=== PATIENT | female | born 1965 | race Caucasian/White ===

== ENCOUNTER 2019-03-07 21:30 | Inpatient (IN) | payer OTHER ==
[~2019-03-07] VITALS: Ht 177.8 cm; Wt 113.2 kg
[2019-03-07] MEDS ORDERED: NITROGLYCERIN SUBLINGUAL 0.4 MG BOTTLE OF 25. SL PRN (21:45)
[2019-03-07] MEDS ORDERED: ASPIRIN CHEWABLE 81 MG TABLET. PO ONE (21:45)
[2019-03-07] MEDS ORDERED: MORPHINE SULFATE 2 MG/ML VIAL. IV/SQ PRN (21:45)
[2019-03-07 21:48] LABS: BASO # 0.1 x10^3/uL (0.0-0.2); BASO % 1 % (0-3); EOS # 0.2 x10^3/uL (0.0-0.7); EOS % 2 % (0-3); HEMATOCRIT 37.8 % (36.0-47.0); HEMOGLOBIN 12.3 g/dL (12.0-15.5); LYMPH # 3.3 x10^3/uL (1.0-4.8); LYMPH % 34 % (24-48); MEAN CORPUSCULAR HEMOGLOBIN 28 pg (25-35); MEAN CORPUSCULAR HGB CONC 33 g/dL (31-37); MEAN CORPUSCULAR VOLUME 84 fL (79-100); MONO # 0.7 x10^3/uL (0.0-1.1); MONO % 8 % (0-9); NEUT # 5.3 x10^3/uL (1.8-7.7); NEUT % 56 % (31-73); PLATELET COUNT 293 x10^3/uL (140-400); RED BLOOD COUNT 4.48 x10^6/uL (3.50-5.40); RED CELL DISTRIBUTION WIDTH 15.4 % (11.5-14.5); WHITE BLOOD COUNT 9.5 x10^3/uL (4.0-11.0)
[2019-03-07 21:55] LABS: CALCIUM 8.7 mg/dL (8.5-10.1); GFR 58.5; POTASSIUM 3.1 mmol/L (3.5-5.1)
[2019-03-07 21:57] LABS: PROTHROMBIN TIME PATIENT 12.3 SEC (11.7-14.0)
[2019-03-07 22:01] LABS: ALBUMIN 3.9 g/dL (3.4-5.0); ALBUMIN/GLOBULIN RATIO 1.2 (1.0-1.7); TOTAL BILIRUBIN 0.3 mg/dL (0.2-1.0); TOTAL PROTEIN 7.2 g/dL (6.4-8.2)
[2019-03-07] MEDS ORDERED: ONDANSETRON PF 4 MG/2 ML VIAL. ONE (22:11)
[2019-03-07] MEDS ORDERED: ONDANSETRON PF 4 MG/2 ML VIAL. IM ONE (22:15)
[2019-03-07] MEDS ORDERED: ONDANSETRON PF 4 MG/2 ML VIAL. IV ONE (22:15)
--- NOTE | 2019-03-07 22:33 | RAD ---
Exam: Chest one view INDICATION: Chest pain TECHNIQUE: Frontal view of the chest Comparisons: None FINDINGS: The cardiomediastinal silhouette and pulmonary vessels are within normal limits. The lung and pleural spaces are clear. IMPRESSION: No acute cardiopulmonary process. Electronically signed by: Yazmin Olivares MD (03/07/2019 10:30 PM) [facility]
[2019-03-07] MEDS ORDERED: MORPHINE SULFATE 2 MG/ML VIAL. IV ONE (22:45)
[2019-03-07] MEDS ORDERED: IOHEXOL 350 MG/ML 100 ML VIAL. IV ONE (23:00)
[2019-03-07] MEDS ORDERED: CONTRAST GIVEN. MC PRN (23:00)
[2019-03-07] MEDS ORDERED: POTASSIUM CHLORIDE 20 MEQ TABLET.ER. PO ONE (23:45)
--- NOTE | 2019-03-07 23:46 | PHYS DOC ---
Past Medical History Past Medical History: Hypothyroid, Other Additional Past Medical Histor: Cardiomyopathy, "something above or below my heart" Past Surgical History: Hysterectomy, Other Additional Past Surgical Histo: Bilateral carpal tunnel, ulnar nerve release Alcohol Use: Occasionally Drug Use: None Adult General Chief Complaint Chief Complaint: CHEST PAIN HPI HPI Patient is a 53 year old female who presents with complains of chest pain, chest pressure. She states started approximately 3:30 PM described as continuous. She did have some radiation to her jaw. She denies any nausea, vomiting however did have some shortness of breath. He makes symptoms worse, nothing makes them better. Patient's underlying history of anxiety, diabetes, hyperlipidemia. She is a history of stress test approximately 5 years ago. She has no primary care physician just moved to the area. Review of Systems Review of Systems Constitutional: Denies fever or chills [] Eyes: Denies change in visual acuity, redness, or eye pain [] HENT: Denies nasal congestion or sore throat [] Respiratory: Denies cough or shortness of breath [] Cardiovascular: No additional information not addressed in HPI [] GI: Denies abdominal pain, nausea, vomiting, bloody stools or diarrhea [] : Denies dysuria or hematuria [] Musculoskeletal: Denies back pain or joint pain [] Integument: Denies rash or skin lesions [] Neurologic: Denies headache, focal weakness or sensory changes [] Endocrine: Denies polyuria or polydipsia [] All other systems were reviewed and found to be within normal limits, except as documented in this note. Current Medications Current Medications Current Medications Medications (Trade) Dose Ordered Sig/[facility] Start Time Stop Time Status Last Admin Dose Admin Aspirin (Children'S Aspirin) 324 mg 1X ONCE 03/07/19 21:45 03/07/19 21:47 DC 03/07/19 22:05 324 MG Info (CONTRAST GIVEN -- Rx MONITORING) 1 each PRN DAILY PRN 03/07/19 23:00 03/09/19 22:59 Iohexol (Omnipaque 350 Mg/ml) 90 ml 1X ONCE 03/07/19 23:00 03/07/19 23:01 DC 03/07/19 23:00 90 ML Morphine Sulfate (Morphine Sulfate) 2 mg 1X ONCE 03/07/19 22:45 03/07/19 22:53 DC 03/08/19 00:29 2 MG Multi-Ingredient Mouthwash/Gargle (Gi Cocktail) 20 ml 1X ONCE 03/08/19 00:00 03/08/19 00:03 DC 03/08/19 00:29 20 ML Nitroglycerin (Nitrostat) 0.4 mg PRN Q5MIN PRN 03/07/19 21:45 03/08/19 21:44 03/07/19 22:05 0.4 MG Ondansetron HCl (Zofran) 4 mg STK-MED ONCE 03/07/19 22:11 03/07/19 22:15 DC Potassium Chloride (Klor-Con) 40 meq 1X ONCE 03/07/19 23:45 03/07/19 23:46 DC 03/08/19 00:29 40 MEQ Allergies Allergies Allergies Coded Allergies Type Severity Reaction Last Updated Verified ceftriaxone Adverse Reaction Unknown Dry Cough 03/07/19 Yes Physical Exam Physical Exam Constitutional: Well developed, well nourished, no acute distress, non-toxic appearance. [] HENT: Normocephalic, atraumatic, bilateral external ears normal, oropharynx moist, no oral exudates, nose normal. [] Eyes: PERRLA, EOMI, conjunctiva normal, no discharge. [] Neck: Normal range of motion, no tenderness, supple, no stridor. [] Cardiovascular:Heart rate regular rhythm, no murmur [] Lungs & Thorax: Bilateral breath sounds clear to auscultation [] Abdomen: Bowel sounds normal, soft, no tenderness, no masses, no pulsatile m asses. [] Skin: Warm, dry, no erythema, no rash. [] Back: No tenderness, no CVA tenderness. [] Extremities: No tenderness, no cyanosis, no clubbing, ROM intact, no edema. [] Neurologic: Alert and oriented X 3, normal motor function, normal sensory function, no focal deficits noted. [] Psychologic: Affect normal, judgement normal, mood normal. [] Current Patient Data Vital Signs Vital Signs Date Time Temp Pulse Resp B/P (MAP) Pulse Ox O2 Delivery O2 Flow Rate FiO2 03/08/19 00:29 16 94 03/07/19 22:58 1.0 03/07/19 22:26 Nasal Cannula 03/07/19 22:25 82 107/67 (80) 03/07/19 21:30 98.1 98.1 Lab Values Laboratory Tests Test 03/07/19 21:35 White Blood Count 9.5 x10^3/uL (4.0-11.0) Red Blood Count 4.48 x10^6/uL (3.50-5.40) Hemoglobin 12.3 g/dL (12.0-15.5) Hematocrit 37.8 % (36.0-47.0) Mean Corpuscular Volume 84 fL (79-100) Mean Corpuscular Hemoglobin 28 pg (25-35) Mean Corpuscular Hemoglobin Concent 33 g/dL (31-37) Red Cell Distribution Width 15.4 % (11.5-14.5) H Platelet Count 293 x10^3/uL (140-400) Neutrophils (%) (Auto) 56 % (31-73) Lymphocytes (%) (Auto) 34 % (24-48) Monocytes (%) (Auto) 8 % (0-9) Eosinophils (%) (Auto) 2 % (0-3) Basophils (%) (Auto) 1 % (0-3) Neutrophils # (Auto) 5.3 x10^3/uL (1.8-7.7) Lymphocytes # (Auto) 3.3 x10^3/uL (1.0-4.8) Monocytes # (Auto) 0.7 x10^3/uL (0.0-1.1) Eosinophils # (Auto) 0.2 x10^3/uL (0.0-0.7) Basophils # (Auto) 0.1 x10^3/uL (0.0-0.2) Prothrombin Time 12.3 SEC (11.7-14.0) Prothrombin Time INR 0.9 (0.8-1.1) Sodium Level 147 mmol/L (136-145) H Potassium Level 3.1 mmol/L (3.5-5.1) L Chloride Level 109 mmol/L (98-107) H Carbon Dioxide Level 29 mmol/L (21-32) Anion Gap 9 (6-14) Blood Urea Nitrogen 16 mg/dL (7-20) Creatinine 1.0 mg/dL (0.6-1.0) Estimated GFR (Cockcroft-Gault) 58.5 BUN/Creatinine Ratio 16 (6-20) Glucose Level 93 mg/dL (70-99) Calcium Level 8.7 mg/dL (8.5-10.1) Total Bilirubin 0.3 mg/dL (0.2-1.0) Aspartate Amino Transferase (AST) 22 U/L (15-37) Alanine Aminotransferase (ALT) 31 U/L (14-59) Alkaline Phosphatase 83 U/L (46-116) Creatine Kinase 154 U/L (26-192) Creatine Kinase MB (Mass) 1.4 ng/mL (0.0-3.6) Creatine Kinase MB Relative Index 0.9 % (0-4) Troponin I Quantitative < 0.017 ng/mL (0.000-0.055) Total Protein 7.2 g/dL (6.4-8.2) Albumin 3.9 g/dL (3.4-5.0) Albumin/Globulin Ratio 1.2 (1.0-1.7) Laboratory Tests 03/07/19 21:35 Laboratory Tests 03/07/19 21:35 EKG EKG KG reviewed, sinus rhythm appreciated, heart rate 77, normal axis. No evidence of acute ST or T wave change[] Interpretation Time: 2138 Radiology/Procedures Radiology/Procedures [facility] [address] [facility] [place], [place] [id number] IMAGING REPORT Signed PATIENT: CAMERON RADFORD ACCOUNT: [id number] : 1965 LOCATION: ER AGE: 53 SEX: F EXAM STATUS: REG ER ORD. PHYSICIAN: FRANCIS HOWE MD REASON: Chest pain, history of possible aneurysm, SOB PROCEDURE: CT ANGIOGRAPHY CHEST STUDY: CT angiography of the chest INDICATION: Chest pain. Possible history of aneurysm. Shortness of breath. COMPARISON: None available. TECHNIQUE: Helical CT angiography of the abdomen/pelvis with imaging performed both prior to and after the intravenous administration of 90 cc Omnipaque 350. Multiplanar reconstructions were obtained. FINDINGS: Two vessel arch configuration with a common origin of the brachiocephalic and left internal carotid artery. The visualized portions of the great vessels are unremarkable. The thoracic aorta is normal in caliber and without dissection. Normal caliber of the visualized abdominal aorta as well. Mild prominence of the main pulmonary artery measuring up to 3.4 cm in transverse dimension though accurate measurement is somewhat degraded due to cardiac motion. Note is made that the study is not timed for close evaluation of the pulmonary arterial tree. Non-masslike soft tissue density in the anterior mediastinum could represent some residual thymic tissue. No pericardial effusion. Right lung apex pulmonary nodule measuring 3 mm on image 30 series 3. No additional pulmonary nodule identified. No pleural effusion, pneumothorax or lobar infiltrate. Minimal basilar volume loss. No mediastinal or hilar adenopathy. No axillary adenopathy. No discrete abnormality of the visualized neck soft tissues. No acute abnormality seen at the upper abdomen. No acute or destructive osseous abnormality. Asymmetric elevation of the right hemidiaphragm. IMPRESSION: 1. No thoracic or upper abdominal aortic aneurysm or dissection. The visualized great vessels are unremarkable. Mild main pulmonary artery dilatation measuring up to 3.4 cm. Note is made that the examination is not timed for close evaluation of the pulmonary arterial tree. 2. Tiny 3 mm right apical pulmonary nodule which does not meet size criteria for dedicated follow-up per Fleischner guidelines unless the patient is high risk for lung malignancy in which case optional CT in 12 months could be considered. Electronically signed by: TAMIA GALINDO MD (03/08/2019 12:34 AM) [facility] DICTATED and SIGNED BY: TAMIA GALINDO MD DATE: 03/08/19 0034 [facility] [address] [place] [address] IMAGING REPORT Signed PATIENT: CAMERON RADFORD ACCOUNT: [id number] : 1965 LOCATION: ER AGE: 53 SEX: F EXAM STATUS: REG ER ORD. PHYSICIAN: FRANCIS HOWE MD REASON: chest pain PROCEDURE: PORTABLE CHEST 1V Exam: Chest one view INDICATION: Chest pain TECHNIQUE: Frontal view of the chest Comparisons: None FINDINGS: The cardiomediastinal silhouette and pulmonary vessels are within normal limits. The lung and pleural spaces are clear. IMPRESSION: No acute cardiopulmonary process. Electronically signed by: Yazmin Dos Santos MD (03/07/2019 10:30 PM) [facility] DICTATED and SIGNED BY: YAZMIN DOS SANTOS MD DATE: 03/07/192229 Course & Med Decision Making Course & Med Decision Making Pertinent Labs and Imaging studies reviewed. (See chart for details) [Patient presented to the emergency Department with complaints of chest pain, pressure, continuous since 3:30 PM. She with history of diabetes, hyperlipidemia. Laboratory values and imaging reviewed, troponin within normal limits. Patient was provided with aspirin, nitroglycerin, morphine with improved pain. CTA of chest was performed given the patient's questionable concern of aneurysm as well as shortness of breath and concern for PE. Heart score of 5. Plan for admit to hospitalist and further routine cardiology consultation. Discussed at bedside with patient regarding plans for admission. Dragon Disclaimer Dragon Disclaimer This electronic medical record was generated, in whole or in part, using a voice recognition dictation system. Departure Departure Impression: Primary Impression: Chest pain Additional Impressions: Nausea Hyperlipidemia Disposition: ADMITTED INPATIENT Admitting Physician: HIMS Condition: STABLE Referrals: NO PCP (PCP) The HEART Score for CP Pts HEART Score for Chest Pain: HEART Score for Chest Pain Response (Comments) Value History Moderately Suspicious 1 ECG Nonspecific Repolarizatio 1 Age >45 - < 65 1 Risk Factors 1 or 2 Risk Factors 1 Troponin >1-<3x Normal Limit 1 Total 5 Risk Factors: Risk Factors: DM, Current or recent (<one month) smoker, HTN, HLP, family history of CAD, obesity. Risk Scores: Score 0 - 3: 2.5% MACE over next 6 weeks - Discharge Home Score 4 - 6: 20.3% MACE over next 6 weeks - Admit for Clinical Observation Score 7 - 10: 72.7% MACE over next 6 weeks - Early Invasive Strategies Problem Qualifiers Primary Impression: Chest pain Chest pain type: unspecified Qualified Codes: R07.9 - Chest pain, unspecified Additional Impressions: Hyperlipidemia Hyperlipidemia type: unspecified Qualified Codes: E78.5 - Hyperlipidemia, unspecified FRANCIS HOWE MD Mar 07, 2019 23:46
[2019-03-08] VITALS (11 sets, daily range): BP systolic 96–119; BP diastolic 54–72
[2019-03-08] MEDS ORDERED: LIDO:MAALOX 1:1 20 ML SINGLE DOSE. SWSW ONE
--- NOTE | 2019-03-08 00:37 | RAD ---
STUDY: CT angiography of the chest INDICATION: Chest pain. Possible history of aneurysm. Shortness of breath. COMPARISON: None available. TECHNIQUE: Helical CT angiography of the abdomen/pelvis with imaging performed both prior to and after the intravenous administration of 90 cc Omnipaque 350. Multiplanar reconstructions were obtained. FINDINGS: Two vessel arch configuration with a common origin of the brachiocephalic and left internal carotid artery. The visualized portions of the great vessels are unremarkable. The thoracic aorta is normal in caliber and without dissection. Normal caliber of the visualized abdominal aorta as well. Mild prominence of the main pulmonary artery measuring up to 3.4 cm in transverse dimension though accurate measurement is somewhat degraded due to cardiac motion. Note is made that the study is not timed for close evaluation of the pulmonary arterial tree. Non-masslike soft tissue density in the anterior mediastinum could represent some residual thymic tissue. No pericardial effusion. Right lung apex pulmonary nodule measuring 3 mm on image 30 series 3. No additional pulmonary nodule identified. No pleural effusion, pneumothorax or lobar infiltrate. Minimal basilar volume loss. No mediastinal or hilar adenopathy. No axillary adenopathy. No discrete abnormality of the visualized neck soft tissues. No acute abnormality seen at the upper abdomen. No acute or destructive osseous abnormality. Asymmetric elevation of the right hemidiaphragm. IMPRESSION: 1. No thoracic or upper abdominal aortic aneurysm or dissection. The visualized great vessels are unremarkable. Mild main pulmonary artery dilatation measuring up to 3.4 cm. Note is made that the examination is not timed for close evaluation of the pulmonary arterial tree. 2. Tiny 3 mm right apical pulmonary nodule which does not meet size criteria for dedicated follow-up per Fleischner guidelines unless the patient is high risk for lung malignancy in which case optional CT in 12 months could be considered. Electronically signed by: TAMIA GALINDO MD (03/08/2019 12:34 AM) [facility]
[2019-03-08] MEDS ORDERED: MORPHINE SULFATE 2 MG/ML VIAL. IV PRN (00:45)
[2019-03-08] MEDS ORDERED: 0.9 % SODIUM CHLORIDE 10 ML DISP.SYRIN. IV PRN (00:45)
[2019-03-08] MEDS ORDERED: MORPHINE SULFATE 4 MG/ML VIAL. IV PRN (00:45)
[2019-03-08] MEDS ORDERED: NITROGLYCERIN SUBLINGUAL 0.4 MG BOTTLE OF 25. SL PRN ×2 (00:45)
[2019-03-08] MEDS ORDERED: ONDANSETRON PF 4 MG/2 ML VIAL. IV PRN ×2 (00:45)
[2019-03-08] MEDS ORDERED: ACETAMINOPHEN 325 MG TABLET. PO PRN ×2 (00:45)
[2019-03-08] MEDS ORDERED: DOCUSATE SODIUM 100 MG CAPSULE. PO PRN (00:45)
--- NOTE | 2019-03-08 02:36 | NUR ---
Pt arrived to unit per wheelchair at 0125. Pt ambulated transfer from chair to bed with standby assistance, heat monitor applied. Pt oriented to surroundings and call light. Poc explained assessment complete vs obtained and stable call light in reach will resume care and continue to monitor pt.
[2019-03-08] MEDS ORDERED: ASPI-630 PO (04:15)
[2019-03-08] MEDS ORDERED: CETI10TA16 PO (04:15)
[2019-03-08] MEDS ORDERED: HYDR25TA10 PO (04:15)
[2019-03-08] MEDS ORDERED: FLUOXETINE (04:15)
[2019-03-08] MEDS ORDERED: LEVO50TA PO (04:15)
[2019-03-08] MEDS ORDERED: MONT10TA49 PO (04:15)
[2019-03-08] MEDS ORDERED: BUSP10TA PO (04:15)
[2019-03-08] MEDS ORDERED: BUSP30TA PO (04:15)
[2019-03-08] MEDS ORDERED: LEVO200T PO (04:15)
--- NOTE | 2019-03-08 06:26 | EKG ---
[facility] [address] [place] [address] Test Date: 2019-03-07 Test Time: 21:34:58 Pat Name: CAMERON RADFORD Department: Room: Gender: F Medical Staff Director: : 1965 Requested By: FRANCIS HOWE Order Number: [id number] Reading MD: Measurements Intervals [place] Rate: 77 P: IA: QRS: -34 QRSD: 98 T: 146 QT: 390 QTc: 443 Interpretive Statements IRREGULAR RHYTHM, NO P-WAVE FOUND ABNORMAL LEFT AXIS DEVIATION LEFT ANTERIOR FASCICULAR BLOCK T ABNORMALITY IN HIGH LATERAL LEADS INFERIOR LEADS ABNORMAL ECG RI6.01 Unconfirmed report No previous ECG available for comparison
[2019-03-08] MEDS: MORPHINE SULFATE 2 MG/ML VIAL. IV PRN ×2 (07:35→19:46)
--- NOTE | 2019-03-08 08:55 | PDOC1 ---
History and Physical Date of Admission Date of Admission DATE: 03/08/19 TIME: 08:55 Identification/Chief Complaint Chief Complaint 53 year old female who presents with complains of chest pain, chest pressure. She states started approximately 3:30 PM described as continuous. She did have some radiation to her jaw. She denies any nausea, vomiting however did have some shortness of breath. Past Medical History Past Medical History Past Medical History Past Medical History Past Medical History: Hypothyroid, Other Additional Past Medical Histor: Cardiomyopathy, "something above or below my heart" Past Surgical History: Hysterectomy, Other Additional Past Surgical Histo: Bilateral carpal tunnel, ulnar nerve release Alcohol Use: Occasionally Drug Use: None fhx obesity Family History Family History: High Cholestrol, Hypertension Social History Smoke: No ALCOHOL: none Drugs: None Current Problem List Problem List Problems Medical Problems: (1) Chest pain Status: Acute (2) Hyperlipidemia Status: Chronic (3) Nausea Status: Acute Current Medications Current Medications Current Medications Aspirin (Children'S Aspirin) 324 mg 1X ONCE PO Last administered on 03/07/19at 22:05; Start 03/07/19 at 21:45; Stop 03/07/19 at 21:47; Status DC Nitroglycerin (Nitrostat) 0.4 mg PRN Q5MIN PRN SL CP RATING > 1/10 Last administered on 03/07/19at 22:05; Start 03/07/19 at 21:45; Stop 03/08/19 at 21:44 Morphine Sulfate (Morphine Sulfate) 2 mg PRN Q15MIN PRN IV/SQ PAIN GREATER THAN 3/10 Last administered on 03/07/19at 22:26; Start 03/07/19 at 21:45; Stop 03/08/19 at 21:44 Ondansetron HCl (Zofran) 4 mg 1X ONCE IM ; Start 03/07/19 at 22:15; Stop 03/07/19 at 22:16; Status Cancel Ondansetron HCl (Zofran) 4 mg 1X ONCE IV Last administered on 03/07/19at 22:16; Start 03/07/19 at 22:15; Stop 03/07/19 at 22:21; Status DC Ondansetron HCl (Zofran) 4 mg STK-MED ONCE .ROUTE ; Start 03/07/19 at 22:11; Stop 03/07/19 at 22:15; Status DC Morphine Sulfate (Morphine Sulfate) 2 mg 1X ONCE IV Last administered on 03/08/19at 00:29; Start 03/07/19 at 22:45; Stop 03/07/19 at 22:53; Status DC Iohexol (Omnipaque 350 Mg/ml) 90 ml 1X ONCE IV Last administered on 03/07/19at 23:00; Start 03/07/19 at 23:00; Stop 03/07/19 at 23:01; Status DC Info (CONTRAST GIVEN -- Rx MONITORING) 1 each PRN DAILY PRN MC SEE COMMENTS; Start 03/07/19 at 23:00; Stop 03/09/19 at 22:59 Potassium Chloride (Klor-Con) 40 meq 1X ONCE PO Last administered on 03/08/19at 00:29; Start 03/07/19 at 23:45; Stop 03/07/19 at 23:46; Status DC Multi-Ingredient Mouthwash/Gargle (Gi Cocktail) 20 ml 1X ONCE SWSW Last administered on 03/08/19at 00:29; Start 03/08/19 at 00:00; Stop 03/08/19 at 00:03; Status DC Ondansetron HCl (Zofran) 4 mg PRN Q8HRS PRN IV NAUSEA/VOMITING; Start 03/08/19 at 00:45; Stop 03/09/19 at 00:44 Morphine Sulfate (Morphine Sulfate) 2 mg PRN Q2HR PRN IV PAIN; Start 03/08/19 at 00:45; Stop 03/09/19 at 00:44; Status UNV Acetaminophen (Tylenol) 650 mg PRN Q4HRS PRN PO FEVER; Start 03/08/19 at 00:45; Stop 03/09/19 at 00:44; Status UNV Nitroglycerin (Nitrostat) 0.4 mg PRN Q5MIN PRN SL CHEST PAIN; Start 03/08/19 at 00:45; Stop 03/09/19 at 00:44 Nitroglycerin (Nitrostat) 0.4 mg PRN Q5MIN PRN SL CHEST PAIN; Start 03/08/19 at 00:45; Status UNV Morphine Sulfate (Morphine Sulfate) 2 mg PRN Q2HR PRN IV PAIN MILD TO MOD Last administered on 03/08/19at 07:35; Start 03/08/19 at 00:45 Morphine Sulfate (Morphine Sulfate) 4 mg PRN Q2HR PRN IV PAIN SEVERE; Start 03/08/19 at 00:45 Zolpidem Tartrate (Ambien) 5 mg PRN QHS PRN PO INSOMNIA; Start 03/08/19 at 00:45 Ondansetron HCl (Zofran) 4 mg PRN Q4HRS PRN IV NAUSEA/VOMITING; Start 03/08/19 at 00:45; Status UNV Acetaminophen (Tylenol) 650 mg PRN Q6HRS PRN PO MILD PAIN / TEMP; Start 03/08/19 at 00:45; Status UNV Docusate Sodium (Colace) 100 mg PRN DAILY PRN PO CONSTIPATION; Start 03/08/19 at 00:45 Al Hydroxide/Mg Hydroxide (Mylanta Plus Xs) 30 ml PRN Q2HR PRN PO HEARTBURN / GAS; Start 03/08/19 at 00:45 Sodium Chloride (Normal Saline Flush) 3 ml QSHIFT PRN IV AFTER MEDS AND BLOOD DRAWS; Start 03/08/19 at 00:45; Status UNV Active Scripts Active Reported Cetirizine Hcl 10 Mg Tablet 10 Mg PO DAILY [Fluoxetine] Hydrochlorothiazide 25 Mg Tablet 25 Mg PO DAILY Aspirin 81 Mg Tab.chew 1 Tab PO DAILY Montelukast Sodium Tablet (Montelukast Sodium) 10 Mg Tablet 10 Mg PO HS Buspirone Hcl 30 Mg Tablet 1 Tab PO BID Buspirone Hcl 10 Mg Tablet 2 Tab PO BID Synthroid (Levothyroxine Sodium) 200 Mcg Tablet 1 Tab PO DAILY Synthroid (Levothyroxine Sodium) 50 Mcg Tablet 1 Tab PO DAILY Allergies Allergies: Coded Allergies: ceftriaxone (Verified Adverse Reaction, Unknown, Dry Cough, 03/07/19) ROS Review of System Review of Systems Review of Systems Constitutional: Denies fever or chills [] Eyes: Denies change in visual acuity, redness, or eye pain [] HENT: Denies nasal congestion or sore throat [] Respiratory: Denies cough or shortness of breath [] Cardiovascular: No additional information not addressed in HPI [] GI: Denies abdominal pain, nausea, vomiting, bloody stools or diarrhea [] : Denies dysuria or hematuria [] Musculoskeletal: Denies back pain or joint pain [] Integument: Denies rash or skin lesions [] Neurologic: Denies headache, focal weakness or sensory changes [] Endocrine: Denies polyuria or polydipsia [] 14 pt systems were reviewed and found to be within normal limits, except as documented ALLERGY AND IMMUNOLOGY: No: Hives, Insect Bite Sensitivity, Itchy/Watery Eyes, Nasal Congestion, Post Nasal Drip, Seasonal Allergies, Other Physical Exam Physical Exam Physical Exam Physical Exam Constitutional: Well developed, well nourished, no acute distress, non-toxic appearance. [] HENT: Normocephalic, atraumatic, bilateral external ears normal, oropharynx moist, no oral exudates, nose normal. [] Eyes: PERRLA, EOMI, conjunctiva normal, no discharge. [] Neck: Normal range of motion, no tenderness, supple, no stridor. [] Cardiovascular:Heart rate regular rhythm, no murmur [] Lungs & Thorax: Bilateral breath sounds clear to auscultation [] Abdomen: Bowel sounds normal, soft, no tenderness, no masses, no pulsatile masses. [] Skin: Warm, dry, no erythema, no rash. [] Back: No tenderness, no CVA tenderness. [] Extremities: No tenderness, no cyanosis, no clubbing, ROM intact, no edema. [] Neurologic: Alert and oriented X 3, normal motor function, normal sensory function, no focal deficits noted. [] Psychologic: Affect normal, judgement normal, mood normal. [] General: Alert, Oriented X3, Cooperative, No acute distress HEENT: Atraumatic, EOMI, Mucous membr. moist/pink Lungs: Clear to auscultation Heart: RRR, no thrills Breasts: Not examined Abdomen: Normal bowel sounds, Soft Rectal Exam: not examined Neuro: Normal speech, Cranial nerves 3-12 NL Psych/Mental Status: Mental status NL, Mood NL Vitals Vitals Vital Signs Date Time Temp Pulse Resp B/P (MAP) Pulse Ox O2 Delivery O2 Flow Rate FiO2 03/08/19 07:45 Room Air 03/08/19 07:35 16 94 03/08/19 07:00 98.3 83 97/60 (72) 98.3 03/07/19 22:58 1.0 Labs Labs Laboratory Tests Test 03/07/19 21:35 White Blood Count 9.5 x10^3/uL (4.0-11.0) Red Blood Count 4.48 x10^6/uL (3.50-5.40) Hemoglobin 12.3 g/dL (12.0-15.5) Hematocrit 37.8 % (36.0-47.0) Mean Corpuscular Volume 84 fL (79-100) Mean Corpuscular Hemoglobin 28 pg (25-35) Mean Corpuscular Hemoglobin Concent 33 g/dL (31-37) Red Cell Distribution Width 15.4 % (11.5-14.5) Platelet Count 293 x10^3/uL (140-400) Neutrophils (%) (Auto) 56 % (31-73) Lymphocytes (%) (Auto) 34 % (24-48) Monocytes (%) (Auto) 8 % (0-9) Eosinophils (%) (Auto) 2 % (0-3) Basophils (%) (Auto) 1 % (0-3) Neutrophils # (Auto) 5.3 x10^3/uL (1.8-7.7) Lymphocytes # (Auto) 3.3 x10^3/uL (1.0-4.8) Monocytes # (Auto) 0.7 x10^3/uL (0.0-1.1) Eosinophils # (Auto) 0.2 x10^3/uL (0.0-0.7) Basophils # (Auto) 0.1 x10^3/uL (0.0-0.2) Prothrombin Time 12.3 SEC (11.7-14.0) Prothromb Time International Ratio 0.9 (0.8-1.1) Sodium Level 147 mmol/L (136-145) Potassium Level 3.1 mmol/L (3.5-5.1) Chloride Level 109 mmol/L (98-107) Carbon Dioxide Level 29 mmol/L (21-32) Anion Gap 9 (6-14) Blood Urea Nitrogen 16 mg/dL (7-20) Creatinine 1.0 mg/dL (0.6-1.0) Estimated GFR (Cockcroft-Gault) 58.5 BUN/Creatinine Ratio 16 (6-20) Glucose Level 93 mg/dL (70-99) Calcium Level 8.7 mg/dL (8.5-10.1) Total Bilirubin 0.3 mg/dL (0.2-1.0) Aspartate Amino Transf (AST/SGOT) 22 U/L (15-37) Alanine Aminotransferase (ALT/SGPT) 31 U/L (14-59) Alkaline Phosphatase 83 U/L (46-116) Creatine Kinase 154 U/L (26-192) Creatine Kinase MB (Mass) 1.4 ng/mL (0.0-3.6) Creatine Kinase MB Relative Index 0.9 % (0-4) Troponin I Quantitative < 0.017 ng/mL (0.000-0.055) Total Protein 7.2 g/dL (6.4-8.2) Albumin 3.9 g/dL (3.4-5.0) Albumin/Globulin Ratio 1.2 (1.0-1.7) Laboratory Tests Test 03/07/19 21:35 White Blood Count 9.5 x10^3/uL (4.0-11.0) Red Blood Count 4.48 x10^6/uL (3.50-5.40) Hemoglobin 12.3 g/dL (12.0-15.5) Hematocrit 37.8 % (36.0-47.0) Mean Corpuscular Volume 84 fL (79-100) Mean Corpuscular Hemoglobin 28 pg (25-35) Mean Corpuscular Hemoglobin Concent 33 g/dL (31-37) Red Cell Distribution Width 15.4 % (11.5-14.5) Platelet Count 293 x10^3/uL (140-400) Neutrophils (%) (Auto) 56 % (31-73) Lymphocytes (%) (Auto) 34 % (24-48) Monocytes (%) (Auto) 8 % (0-9) Eosinophils (%) (Auto) 2 % (0-3) Basophils (%) (Auto) 1 % (0-3) Neutrophils # (Auto) 5.3 x10^3/uL (1.8-7.7) Lymphocytes # (Auto) 3.3 x10^3/uL (1.0-4.8) Monocytes # (Auto) 0.7 x10^3/uL (0.0-1.1) Eosinophils # (Auto) 0.2 x10^3/uL (0.0-0.7) Basophils # (Auto) 0.1 x10^3/uL (0.0-0.2) Prothrombin Time 12.3 SEC (11.7-14.0) Prothromb Time International Ratio 0.9 (0.8-1.1) Sodium Level 147 mmol/L (136-145) Potassium Level 3.1 mmol/L (3.5-5.1) Chloride Level 109 mmol/L (98-107) Carbon Dioxide Level 29 mmol/L (21-32) Anion Gap 9 (6-14) Blood Urea Nitrogen 16 mg/dL (7-20) Creatinine 1.0 mg/dL (0.6-1.0) Estimated GFR (Cockcroft-Gault) 58.5 BUN/Creatinine Ratio 16 (6-20) Glucose Level 93 mg/dL (70-99) Calcium Level 8.7 mg/dL (8.5-10.1) Total Bilirubin 0.3 mg/dL (0.2-1.0) Aspartate Amino Transf (AST/SGOT) 22 U/L (15-37) Alanine Aminotransferase (ALT/SGPT) 31 U/L (14-59) Alkaline Phosphatase 83 U/L (46-116) Creatine Kinase 154 U/L (26-192) Creatine Kinase MB (Mass) 1.4 ng/mL (0.0-3.6) Creatine Kinase MB Relative Index 0.9 % (0-4) Troponin I Quantitative < 0.017 ng/mL (0.000-0.055) Total Protein 7.2 g/dL (6.4-8.2) Albumin 3.9 g/dL (3.4-5.0) Albumin/Globulin Ratio 1.2 (1.0-1.7) VTE Prophylaxis Ordered VTE Prophylaxis Devices: Yes VTE Pharmacological Prophylaxi: Yes Assessment/Plan Assessment/Plan impression unstable angina Hx of CM: C 3 yrs ago no intervention Hypothyroidism: hx of hashimotos Obesity, obesity Hyperlipidemia plan admit cvc bed cardiology consult echo CARDIAC CATH 74 MIN pt exam, chart review, > 50% of time spent with exam, chart review, pt care coordination KVNG ESTEVES MD Mar 08, 2019 08:55
[2019-03-08 09:34] LABS: CALCIUM 8.5 mg/dL (8.5-10.1); GFR 58.5; MAGNESIUM 1.9 mg/dL (1.8-2.4); POTASSIUM 3.8 mmol/L (3.5-5.1)
[2019-03-08 09:35] LABS: CHOLESTEROL/HDL RATIO 3.9
[2019-03-08] MEDS: ACETAMINOPHEN 325 MG TABLET. PO PRN (11:35)
[2019-03-08] MEDS ORDERED: IV 1/2 NORMAL SALINE 1,000 ML IV ONE (12:00)
--- NOTE | 2019-03-08 12:04 | PDOC2 ---
DAWOOD PÉREZ [employer] M[employer] OPERATOR 03/08/19 1203: CARDIAC CONSULT DATE OF CONSULT Date of Consult DATE: 03/08/19 TIME: 11:34 REASON FOR CONSULT Reason for Consult: Chest pain REFERRING PHYSICIAN Referring Physician: Libia SOURCE Source: Chart review, Patient HISTORY OF PRESENT ILLNESS HISTORY OF PRESENT ILLNESS This is a pleasant 53 yo female admitted for complains of chest pain. Reports that she has been having chest pressure in the last 1-2 weeks. This was intermittent and only lasting few minutes. She did noticed that she has exertional CP and ANTHONY. Yesterday she started having mid chest pressure that went to her jaw and shoulder and felt nauseated and got drenched with sweat. Also occasional palpitations. Also has been having some dizzy spells. Reports that she had an MPI which promted [facility] 3 yrs ago at [facility]. She moved to [place] after that and she just returned to which is now her permanent residence. Denies any recent falls, injury, or passing out. she was told in the past that she has cardiomyopathy. PAST MEDICAL HISTORY Cardiovascular: HTN, Hyperlipidemia, Other (cardiomyopathy) Pulmonary: Asthma CENTRAL NERVOUS SYSTEM: Carpal Tunnel Syndrome GI: No pertinent hx Heme/Onc: No pertinent hx Psych: Anxiety Musculoskeletal: Osteoarthritis Rheumatologic: No pertinent hx Infectious disease: No pertinent hx ENT: Allergic Rhinitis Renal/: Other (nephrolithiasis) Endocrine: Hypothyroidism Dermatology: No pertinent hx PAST SURGICAL HISTORY Past Surgical History: Hysterectomy, Other (right ulnar nerve release. bilateral carpal tunnel release) FAMILY HISTORY Family History: Heart Disease SOCIAL HISTORY Smoke: Quit ALCOHOL: occassional Drugs: None Lives: with Family CURRENT MEDICATIONS CURRENT MEDICATIONS Current Medications Medications (Trade) Dose Ordered Sig/María Route PRN Reason Start Time Stop Time Status Last Admin Dose Admin Aspirin (Children'S Aspirin) 324 mg 1X ONCE PO 03/07/19 21:45 03/07/19 21:47 DC 03/07/19 22:05 Nitroglycerin (Nitrostat) 0.4 mg PRN Q5MIN PRN SL CP RATING > 1/10 03/07/19 21:45 03/08/19 21:44 03/07/19 22:05 Morphine Sulfate (Morphine Sulfate) 2 mg PRN Q15MIN PRN IV/SQ PAIN GREATER THAN 3/10 03/07/19 21:45 03/08/19 21:44 03/07/19 22:26 Ondansetron HCl (Zofran) 4 mg 1X ONCE IV 03/07/19 22:15 03/07/19 22:21 DC 03/07/19 22:16 Morphine Sulfate (Morphine Sulfate) 2 mg 1X ONCE IV 03/07/19 22:45 03/07/19 22:53 DC 03/08/19 00:29 Iohexol (Omnipaque 350 Mg/ml) 90 ml 1X ONCE IV 03/07/19 23:00 03/07/19 23:01 DC 03/07/19 23:00 Potassium Chloride (Klor-Con) 40 meq 1X ONCE PO 03/07/19 23:45 03/07/19 23:46 DC 03/08/19 00:29 Multi-Ingredient Mouthwash/Gargle (Gi Cocktail) 20 ml 1X ONCE SWSW 03/08/19 00:00 03/08/19 00:03 DC 03/08/19 00:29 Morphine Sulfate (Morphine Sulfate) 2 mg PRN Q2HR PRN IV PAIN MILD TO MOD 03/08/19 00:45 03/08/19 07:35 ALLERGIES ALLERGIES: Coded Allergies: ceftriaxone (Verified Adverse Reaction, Unknown, Dry Cough, 03/07/19) ROS Review of System 14 point ROS evaluated with pertinent positives noted per HPI PHYSICAL EXAM General: Alert, Oriented X3, Cooperative, No acute distress HEENT: Atraumatic, Mucous membr. moist/pink Lungs: Clear to auscultation, Normal air movement Heart: Regular rate (SR), Normal S1, Normal S2, Other (2/6 systolic apical murmur) Abdomen: Soft, No tenderness Extremities: No cyanosis, No edema Skin: No breakdown, No significant lesion Neuro: Normal speech, Sensation intact Psych/Mental Status: Mental status NL, Mood NL MUSCULOSKELETAL: Osteoarthritic changes both hands VITALS/I&O VITALS/I&O: Vital Signs Date Time Temp Pulse Resp B/P (MAP) Pulse Ox O2 Delivery O2 Flow Rate FiO2 03/08/19 07:45 Room Air 03/08/19 07:35 16 94 03/08/19 07:00 98.3 83 97/60 (72) 98.3 03/07/19 22:58 1.0 I & O 03/07/19 03/07/19 03/08/19 14:59 22:59 06:59 Intake Total 0 ml Output Total 300 ml Balance -300 ml LABS Lab: Laboratory Tests Test 03/07/19 21:35 03/08/19 08:50 White Blood Count 9.5 x10^3/uL (4.0-11.0) Red Blood Count 4.48 x10^6/uL (3.50-5.40) Hemoglobin 12.3 g/dL (12.0-15.5) Hematocrit 37.8 % (36.0-47.0) Mean Corpuscular Volume 84 fL (79-100) Mean Corpuscular Hemoglobin 28 pg (25-35) Mean Corpuscular Hemoglobin Concent 33 g/dL (31-37) Red Cell Distribution Width 15.4 % (11.5-14.5) H Platelet Count 293 x10^3/uL (140-400) Neutrophils (%) (Auto) 56 % (31-73) Lymphocytes (%) (Auto) 34 % (24-48) Monocytes (%) (Auto) 8 % (0-9) Eosinophils (%) (Auto) 2 % (0-3) Basophils (%) (Auto) 1 % (0-3) Neutrophils # (Auto) 5.3 x10^3/uL (1.8-7.7) Lymphocytes # (Auto) 3.3 x10^3/uL (1.0-4.8) Monocytes # (Auto) 0.7 x10^3/uL (0.0-1.1) Eosinophils # (Auto) 0.2 x10^3/uL (0.0-0.7) Basophils # (Auto) 0.1 x10^3/uL (0.0-0.2) Prothrombin Time 12.3 SEC (11.7-14.0) Prothrombin Time INR 0.9 (0.8-1.1) Sodium Level 147 mmol/L (136-145) H 147 mmol/L (136-145) H Potassium Level 3.1 mmol/L (3.5-5.1) L 3.8 mmol/L (3.5-5.1) Chloride Level 109 mmol/L (98-107) H 109 mmol/L (98-107) H Carbon Dioxide Level 29 mmol/L (21-32) 32 mmol/L (21-32) Anion Gap 9 (6-14) 6 (6-14) Blood Urea Nitrogen 16 mg/dL (7-20) 16 mg/dL (7-20) Creatinine 1.0 mg/dL (0.6-1.0) 1.0 mg/dL (0.6-1.0) Estimated GFR (Cockcroft-Gault) 58.5 58.5 BUN/Creatinine Ratio 16 (6-20) Glucose Level 93 mg/dL (70-99) 100 mg/dL (70-99) H Calcium Level 8.7 mg/dL (8.5-10.1) 8.5 mg/dL (8.5-10.1) Total Bilirubin 0.3 mg/dL (0.2-1.0) Aspartate Amino Transferase (AST) 22 U/L (15-37) Alanine Aminotransferase (ALT) 31 U/L (14-59) Alkaline Phosphatase 83 U/L (46-116) Creatine Kinase 154 U/L (26-192) Creatine Kinase MB (Mass) 1.4 ng/mL (0.0-3.6) Creatine Kinase MB Relative Index 0.9 % (0-4) Troponin I Quantitative < 0.017 ng/mL (0.000-0.055) < 0.017 ng/mL (0.000-0.055) Total Protein 7.2 g/dL (6.4-8.2) Albumin 3.9 g/dL (3.4-5.0) Albumin/Globulin Ratio 1.2 (1.0-1.7) Magnesium Level 1.9 mg/dL (1.8-2.4) Triglycerides Level 160 mg/dL (0-150) H Cholesterol Level 182 mg/dL (0-200) LDL Cholesterol, Calculated 103 mg/dL (0-100) H VLDL Cholesterol, Calculated 32 mg/dL (0-40) Non-HDL Cholesterol Calculated 135 mg/dL (0-129) H HDL Cholesterol 47 mg/dL (40-60) Cholesterol/HDL Ratio 3.9 Thyroid Stimulating Hormone (TSH) 5.985 uIU/mL (0.358-3.74) H Laboratory Tests 03/07/19 21:35 Laboratory Tests 03/07/19 21:35 03/08/19 08:50 ASSESSMENT/PLAN ASSESSMENT/PLAN 1. Chest pain: UA features 2. Hx of CM: LHC 3 yrs ago no intervention 3. Hypothyroidism: hx of hashimotos. TSH not on goal, per PCP 4. Obesity 5. HLP 6. HTN: controlled Recommendations 1. Discussed ischemic workup MPI vs LHC and would like to have LHC, risks and benefits discussed and agreeable to proceed. 2. TTE, TSH, lipids. 3. Lifestyle modifications JIL KELSEY MD 03/08/19 2223: CARDIAC CONSULT ASSESSMENT/PLAN ASSESSMENT/PLAN Patient seen and examined. Agree with SLEEPING CAR SERVICE ATTENDANT's assessment and plan. Symptoms concerning for unstable angina IL ruled out 2D echo showed normal LVF Plan cardiac cath for definitive evaluation Thank you for your consultation DAWOOD PÉREZ APRN Mar 08, 2019 12:03 JIL KELSEY MD Mar 08, 2019 22:23
--- NOTE | 2019-03-08 13:07 | CARD ---
MR#: [id number] Date of Study: 03/08/2019 Ordering Physician: DAWOOD PÉREZ, Referring Physician: DAWOOD PÉREZ, Tech: Marika Wasserman RENÉE APPROVED REPORT EXAM: Two-dimensional and M-mode echocardiogram with Doppler and color Doppler. Other Information Quality : AverageHR: 83bpm Rhythm : NSR INDICATION Chest Pain 2D DIMENSIONS RVDd3.1 (2.9-3.5cm)Left Atrium(2D)3.8 (1.6-4.0cm) IVSd1.2 (0.7-1.1cm)Aortic Root(2D)3.6 (2.0-3.7cm) LVDd5.4 (3.9-5.9cm)LVOT Diameter2.2 (1.8-2.4cm) PWd1.1 (0.7-1.1cm)LVDs3.8 (2.5-4.0cm) FS (%) 28.7 %SV76.7 ml LVEF(%)54.7 (>50%) M-Mode DIMENSIONS Left Atrium(MM)4.16 (2.5-4.0cm)Aortic Root3.71 (2.2-3.7cm) Aortic Valve AoV Peak Enoch.97.2cm/sAoV VTI19.2cm AO Peak GR.3.8mmHgLVOT Peak Enoch.94.4cm/s AO Mean GR.2mmHgAVA (VMAX)3.70cm2 JIMENEZ (VTI)3.50cm2 Mitral Valve MV E Xqzysqhd56.4cm/sMV DECEL [id number] MV A Echnswqx73.4cm/sE/A Ratio0.9 Pulmonary Valve PV Peak Occiiobv12.7cm/s Tricuspid Valve TR P. Jcvmklqh207so/sRAP [id number] TR Peak Gr.93jiKoVRED23fzKi LEFT VENTRICLE The left ventricle is normal size. There is mild concentric left ventricular hypertrophy. The left ve ntricular systolic function is normal and the ejection fraction is within normal range. The Ejection Fraction is 55-60%. There is normal LV segmental wall motion. Transmitral Doppler flow pattern is Gra de I-abnormal relaxation pattern. RIGHT VENTRICLE The right ventricle is normal size. There is normal right ventricular wall thickness. The right ventr icular systolic function is normal. ATRIA The left atrium is borderline dilated. The right atrium size is normal. The interatrial septum is int act with no evidence for an atrial septal defect or patent foramen ovale as noted on 2-D or Doppler i maging. AORTIC VALVE The aortic valve is normal in structure and function. The aortic valve is trileaflet. Doppler and Col or Flow revealed no significant aortic regurgitation. There is no significant aortic valvular stenosi s. MITRAL VALVE The mitral valve is normal in structure and function. There is no evidence of mitral valve prolapse. There is no mitral valve stenosis. Doppler and Color-flow revealed trace mitral regurgitation. TRICUSPID VALVE The tricuspid valve is normal in structure and function. Doppler and Color Flow revealed trace tricus pid regurgitation. The PA pressure was estimated at 21 mmHg. There is no tricuspid valve prolapse or vegetation. There is no tricuspid valve stenosis. PULMONIC VALVE The pulmonic valve is not well visualized. GREAT VESSELS The aortic root is borderline enlarged. The ascending aorta is normal in size. The IVC is normal in s ize and collapses >50% with inspiration. PERICARDIAL EFFUSION There is no evidence of significant pericardial effusion. Critical Notification Critical Value: No <Conclusion> The left ventricular systolic function is normal and the ejection fraction is within normal range. Th e Ejection Fraction is 55-60%. There is normal LV segmental wall motion. Signed by : Cole Bowden, Electronically Approved : 03/08/2019 10:59:41
--- NOTE | 2019-03-08 13:38 | NUR ---
SS following for discharge planning. SS reviewed pt chart. Pt is from home and is currently on room air. No discharge needs noted at this time. SS will continue to follow for discharge planning.
[2019-03-08] MEDS ORDERED: LIDOCAINE 1% PF 2 ML VIAL. ONE (14:23)
[2019-03-08] MEDS ORDERED: IOHEXOL 300 MG/ML 100ML VIAL. ONE (14:35)
[2019-03-08] MEDS ORDERED: NITROGLYCERIN 200 MCG/2 ML SYRINGE FOR CATH/VASC LAB. ONE ×2 (15:38→16:13)
[2019-03-08] MEDS ORDERED: VERAPAMIL 5 MG/2 ML VIAL. ONE (15:43)
[2019-03-08] MEDS ORDERED: HEPARIN for IV BOLUS 10,000 UNIT/10 ML VIAL. ONE (15:43)
[2019-03-08] MEDS ORDERED: fentaNYL PF VIAL 100 MCG/2 ML VIAL ONE (15:43)
[2019-03-08] MEDS ORDERED: MIDAZOLAM HCL/PF 2 MG/2 ML VIAL. ONE (15:43)
[2019-03-08] MEDS ORDERED: NITROGLYCERIN 200 MCG/2 ML SYRINGE FOR CATH/VASC LAB. IART ONE (16:15)
[2019-03-08] MEDS ORDERED: HEPARIN for IV BOLUS 10,000 UNIT/10 ML VIAL. IART ONE (16:15)
[2019-03-08] MEDS ORDERED: CONTRAST GIVEN. MC PRN (16:15)
[2019-03-08] MEDS ORDERED: IOHEXOL 300 MG/ML 100ML VIAL. IART ONE (16:15)
[2019-03-08] MEDS ORDERED: LIDOCAINE 1% PF 2 ML VIAL. INJ ONE (16:15)
[2019-03-08] MEDS ORDERED: VERAPAMIL 5 MG/2 ML VIAL. IART ONE (16:15)
[2019-03-08] MEDS ORDERED: MIDAZOLAM HCL/PF 2 MG/2 ML VIAL. IV ONE (16:15)
[2019-03-08] MEDS ORDERED: fentaNYL PF VIAL 100 MCG/2 ML VIAL IV ONE (16:15)
--- NOTE | 2019-03-08 17:01 | CARD ---
MR#: [id number] Date of Study: 03/08/2019 Ordering Physician: DAWOOD PÉREZ, Referring Physician: DAWOOD PÉREZ, Tech: RT Collin (R) APPROVED REPORT Technologist: Ju Heredia RT (R) Nurse: Sherri Woods R.N. Procedure(s) performed: Fluoro time: 2.2 min Dose: 53 Gycm2 Contrast: 44cc Moderate sedation: 18 min LHC, Coronary angiography HISTORY The patient is a 53 year-old female with a history of : hypertension, dyslipidemia, family history of premature CAD. INDICATION The indication(s) include : unstable angina . CSHA Clinical Frailty Scale CSHA Clinical Frailty Scale: Managing Well Heart Failure Heart Failure: No PROCEDURE NARRATIVE INFORMED CONSENT: After explaining the risks and benefits of the procedure and alternatives, informed consent was obtained. The patient was brought electively to the cardiac catheterization lab. A timeout was performed confi rming the patient's name, date of , procedure, and site of procedure. All necessary personnel w ere wearing the appropriate protective equipment and radiation monitor devices. (See nursing notes for medications administered). ACCESS: The right wrist was sterilely prepped and draped in the usual fashion. The right wrist was infiltrat ed with 1 mL of 2% lidocaine for subcutaneous anesthesia. A 6 Italian Terumo glide sheath was inserte d into the right radial artery without difficulty. CORONARY ANGIOGRAPHY: Right and left coronary angiography was performed using a 6Fr TIG 4.0 catheter. Left ventricular en d diastolic pressure was obtained with a TIG catheter and pullback was performed. All catheter excha nges and advancements were performed over a guidewire. CLOSURE: At case completion the right radial sheath was removed and a Terumo radial band was applied with 13 m l of air. COMPLICATIONS: The patient tolerated the procedure well and there were no immediate complications. FINDINGS: HEMODYNAMICS: LVEDP 15 mm Hg No gradient on LV to aortic pullback. AO: 110/70 LEFT VENTRICULOGRAM: Deferred due to renal insufficiency. CORONARY ANGIOGRAPHY: LM-Near separate ostial of the LAD and Cx. LAD is a large caliber vessel with normal angiographic appearance. LCx is a large caliber non-dominant vessel with normal angiographic appearance. OM1 is a moderate caliber vessel with normal angiographic appearance. RCA is a large caliber dominant vessel with normal angiographic appearance. RPDA and RPL are moderate caliber vessels with normal angiographic appearance. Conclusion 1. Normal angiographic appearance of the coronary arteries. Recommendations Aggressive Medical Therapy Signed by : Cole Bowden, Electronically Approved : 03/08/2019 17:00:40
[2019-03-08] MEDS ORDERED: SIMETHICONE 80 MG TAB.CHEW PO PRN (19:15)
--- NOTE | 2019-03-08 19:40 | NUR ---
Pt in bed assessment completed vss pt c/o epigastric pain. will give gas-X to see if pt has any relief. call light in reach tr band inplace with 4 cc of air will continue to monitor pt.
[2019-03-08] MEDS: busPIRone 10 MG TABLET. PO SCH (20:39)
[2019-03-08] MEDS: MONTELUKAST SODIUM 10 MG TABLET. PO SCH (20:39)
[2019-03-08] MEDS: ATORVASTATIN CALCIUM 20 MG TABLET PO SCH (20:39)
[2019-03-08] MEDS ORDERED: NON FORMULARY ITEM (Buspirone Hcl 1 TAB) PO SCH (21:00)
[2019-03-09] MEDS: ZOLPIDEM 5 MG TABLET. PO PRN ×2 (00:03→22:15)
[2019-03-09 03:20] VITALS: BP 103/62
[2019-03-09 04:00] LABS: BASO % 0 % (0-3); EOS # 0.5 x10^3/uL (0.0-0.7); EOS % 5 % (0-3); HEMATOCRIT 35.9 % (36.0-47.0); HEMOGLOBIN 11.7 g/dL (12.0-15.5); LYMPH # 2.6 x10^3/uL (1.0-4.8); LYMPH % 26 % (24-48); MEAN CORPUSCULAR HEMOGLOBIN 28 pg (25-35); MEAN CORPUSCULAR HGB CONC 33 g/dL (31-37); MEAN CORPUSCULAR VOLUME 85 fL (79-100); MONO # 0.8 x10^3/uL (0.0-1.1); MONO % 8 % (0-9); NEUT # 6.1 x10^3/uL (1.8-7.7); NEUT % 61 % (31-73); PLATELET COUNT 267 x10^3/uL (140-400); RED BLOOD COUNT 4.21 x10^6/uL (3.50-5.40); RED CELL DISTRIBUTION WIDTH 15.6 % (11.5-14.5)
[2019-03-09 04:13] LABS: ALBUMIN 3.3 g/dL (3.4-5.0); CALCIUM 8.1 mg/dL (8.5-10.1); CREATININE 0.9 mg/dL (0.6-1.0); TOTAL BILIRUBIN 0.2 mg/dL (0.2-1.0); TOTAL PROTEIN 6.6 g/dL (6.4-8.2)
[2019-03-09] MEDS: LEVOTHYROXINE 100 MCG TABLET PO SCH (06:04)
[2019-03-09] MEDS: LEVOTHYROXINE 50 MCG TABLET PO SCH (06:04)
[2019-03-09] MEDS: ACETAMINOPHEN 325 MG TABLET. PO PRN ×3 (06:07→22:08)
[2019-03-09 07:00] VITALS: BP 117/62
--- NOTE | 2019-03-09 08:27 | PDOC ---
PROGRESS NOTES History of Present Illness History of Present Illness VTE Prophylaxis Ordered VTE Prophylaxis Devices: Yes VTE Pharmacological Prophylaxi: Yes Assessment/Plan Assessment/Plan impression unstable angina Normal angiographic appearance of the coronary arteries. Hx of CM: C 3 yrs ago no intervention Hypothyroidism: hx of hashimotos Obesity, obesity Hyperlipidemia EPIGASTRIC PAIN, GB TENDERNESS plan admit cvc bed cardiology consult echo CARDIAC CATH OK ABD SONO 03/09 IV DILAUDID 1 MG Q 4 HRS PRN IV D/W RN 28 MIN pt exam, chart review, > 50% of time spent with exam, chart review, pt care coordination Vitals Vitals Vital Signs Date Time Temp Pulse Resp B/P (MAP) Pulse Ox O2 Delivery O2 Flow Rate FiO2 03/09/19 07:00 98.0 91 18 117/62 (80) 97 Room Air 98.0 03/08/19 16:17 2.0 Physical Exam General: Alert, Oriented X3, Cooperative, No acute distress, mild distress Heart: Regular rate (SR), Normal S1, Normal S2, Other (2/6 systolic apical murmur) Abdomen: Soft, Other (MILD RUQ TENDERNESS) Extremities: No cyanosis, No edema Skin: No breakdown, No significant lesion Labs LABS NDICATION The indication(s) include : unstable angina . C[facility] Clinical Frailty Scale [facility] Clinical Frailty Scale: Managing Well Heart Failure Heart Failure: No PROCEDURE NARRATIVE INFORMED CONSENT: After explaining the risks and benefits of the procedure and alternatives, informed consent was obtained. The patient was brought electively to the cardiac catheterization lab. A timeout was performed confirming the patient's name, date of , procedure, and site of procedure. All necessary personnel were wearing the appropriate protective equipment and radiation monitor devices. (See nursing notes for medications administered). ACCESS: The right wrist was sterilely prepped and draped in the usual fashion. The right wrist was infiltrated with 1 mL of 2% lidocaine for subcutaneous anesthesia. A 6 [place] Terumo glide sheath was inserted into the right radial artery without difficulty. CORONARY ANGIOGRAPHY: Right and left coronary angiography was performed using a 6Fr TIG 4.0 catheter. Left ventricular end diastolic pressure was obtained with a TIG catheter and pullback was performed. All catheter exchanges and advancements were performed over a guidewire. CLOSURE: At case completion the right radial sheath was removed and a Terumo radial band was applied with 13 ml of air. COMPLICATIONS: The patient tolerated the procedure well and there were no immediate complications. FINDINGS: HEMODYNAMICS: LVEDP 15 mm Hg No gradient on LV to aortic pullback. AO: 110/70 LEFT VENTRICULOGRAM: Deferred due to renal insufficiency. CORONARY ANGIOGRAPHY: LM-Near separate ostial of the LAD and Cx. LAD is a large caliber vessel with normal angiographic appearance. LCx is a large caliber non-dominant vessel with normal angiographic appearance. OM1 is a moderate caliber vessel with normal angiographic appearance. RCA is a large caliber dominant vessel with normal angiographic appearance. RPDA and RPL are moderate caliber vessels with normal angiographic appearance. Conclusion 1. Normal angiographic appearance of the coronary arteries. Recommendations Aggressive Medical Therapy Signed by : Bruna Aly, Electronically Approved : 03/08/2019 17:00:40 DICTATED and SIGNED BY: BRUNA ALY MD DATE: 03/08/191609 Laboratory Tests Test 03/08/19 08:50 03/09/19 03:50 Sodium Level 147 mmol/L (136-145) 144 mmol/L (136-145) Potassium Level 3.8 mmol/L (3.5-5.1) 4.0 mmol/L (3.5-5.1) Chloride Level 109 mmol/L (98-107) 107 mmol/L (98-107) Carbon Dioxide Level 32 mmol/L (21-32) 31 mmol/L (21-32) Anion Gap 6 (6-14) 6 (6-14) Blood Urea Nitrogen 16 mg/dL (7-20) 20 mg/dL (7-20) Creatinine 1.0 mg/dL (0.6-1.0) 0.9 mg/dL (0.6-1.0) Estimated GFR (Cockcroft-Gault) 58.5 66.0 Glucose Level 100 mg/dL (70-99) 117 mg/dL (70-99) Calcium Level 8.5 mg/dL (8.5-10.1) 8.1 mg/dL (8.5-10.1) Magnesium Level 1.9 mg/dL (1.8-2.4) Troponin I Quantitative < 0.017 ng/mL (0.000-0.055) Triglycerides Level 160 mg/dL (0-150) Cholesterol Level 182 mg/dL (0-200) LDL Cholesterol, Calculated 103 mg/dL (0-100) VLDL Cholesterol, Calculated 32 mg/dL (0-40) Non-HDL Cholesterol Calculated 135 mg/dL (0-129) HDL Cholesterol 47 mg/dL (40-60) Cholesterol/HDL Ratio 3.9 Thyroid Stimulating Hormone (TSH) 5.985 uIU/mL (0.358-3.74) White Blood Count 10.0 x10^3/uL (4.0-11.0) Red Blood Count 4.21 x10^6/uL (3.50-5.40) Hemoglobin 11.7 g/dL (12.0-15.5) Hematocrit 35.9 % (36.0-47.0) Mean Corpuscular Volume 85 fL (79-100) Mean Corpuscular Hemoglobin 28 pg (25-35) Mean Corpuscular Hemoglobin Concent 33 g/dL (31-37) Red Cell Distribution Width 15.6 % (11.5-14.5) Platelet Count 267 x10^3/uL (140-400) Neutrophils (%) (Auto) 61 % (31-73) Lymphocytes (%) (Auto) 26 % (24-48) Monocytes (%) (Auto) 8 % (0-9) Eosinophils (%) (Auto) 5 % (0-3) Basophils (%) (Auto) 0 % (0-3) Neutrophils # (Auto) 6.1 x10^3/uL (1.8-7.7) Lymphocytes # (Auto) 2.6 x10^3/uL (1.0-4.8) Monocytes # (Auto) 0.8 x10^3/uL (0.0-1.1) Eosinophils # (Auto) 0.5 x10^3/uL (0.0-0.7) Basophils # (Auto) 0.0 x10^3/uL (0.0-0.2) BUN/Creatinine Ratio 22 (6-20) Total Bilirubin 0.2 mg/dL (0.2-1.0) Aspartate Amino Transf (AST/SGOT) 16 U/L (15-37) Alanine Aminotransferase (ALT/SGPT) 25 U/L (14-59) Alkaline Phosphatase 78 U/L (46-116) Total Protein 6.6 g/dL (6.4-8.2) Albumin 3.3 g/dL (3.4-5.0) Albumin/Globulin Ratio 1.0 (1.0-1.7) Assessment and Plan Assessmemt and Plan Problems Medical Problems: (1) Chest pain Status: Acute (2) HTN (hypertension) Status: Chronic (3) Hyperlipidemia Status: Chronic (4) Hypothyroidism Status: Chronic (5) Nausea Status: Acute Comment Review of Relevant I have reviewed the following items tisha (where applicable) has been applied. Labs Laboratory Tests Test 03/07/19 21:35 03/08/19 08:50 03/09/19 03:50 White Blood Count 9.5 x10^3/uL (4.0-11.0) 10.0 x10^3/uL (4.0-11.0) Red Blood Count 4.48 x10^6/uL (3.50-5.40) 4.21 x10^6/uL (3.50-5.40) Hemoglobin 12.3 g/dL (12.0-15.5) 11.7 g/dL (12.0-15.5) Hematocrit 37.8 % (36.0-47.0) 35.9 % (36.0-47.0) Mean Corpuscular Volume 84 fL (79-100) 85 fL (79-100) Mean Corpuscular Hemoglobin 28 pg (25-35) 28 pg (25-35) Mean Corpuscular Hemoglobin Concent 33 g/dL (31-37) 33 g/dL (31-37) Red Cell Distribution Width 15.4 % (11.5-14.5) 15.6 % (11.5-14.5) Platelet Count 293 x10^3/uL (140-400) 267 x10^3/uL (140-400) Neutrophils (%) (Auto) 56 % (31-73) 61 % (31-73) Lymphocytes (%) (Auto) 34 % (24-48) 26 % (24-48) Monocytes (%) (Auto) 8 % (0-9) 8 % (0-9) Eosinophils (%) (Auto) 2 % (0-3) 5 % (0-3) Basophils (%) (Auto) 1 % (0-3) 0 % (0-3) Neutrophils # (Auto) 5.3 x10^3/uL (1.8-7.7) 6.1 x10^3/uL (1.8-7.7) Lymphocytes # (Auto) 3.3 x10^3/uL (1.0-4.8) 2.6 x10^3/uL (1.0-4.8) Monocytes # (Auto) 0.7 x10^3/uL (0.0-1.1) 0.8 x10^3/uL (0.0-1.1) Eosinophils # (Auto) 0.2 x10^3/uL (0.0-0.7) 0.5 x10^3/uL (0.0-0.7) Basophils # (Auto) 0.1 x10^3/uL (0.0-0.2) 0.0 x10^3/uL (0.0-0.2) Prothrombin Time 12.3 SEC (11.7-14.0) Prothromb Time International Ratio 0.9 (0.8-1.1) Sodium Level 147 mmol/L (136-145) 147 mmol/L (136-145) 144 mmol/L (136-145) Potassium Level 3.1 mmol/L (3.5-5.1) 3.8 mmol/L (3.5-5.1) 4.0 mmol/L (3.5-5.1) Chloride Level 109 mmol/L (98-107) 109 mmol/L (98-107) 107 mmol/L (98-107) Carbon Dioxide Level 29 mmol/L (21-32) 32 mmol/L (21-32) 31 mmol/L (21-32) Anion Gap 9 (6-14) 6 (6-14) 6 (6-14) Blood Urea Nitrogen 16 mg/dL (7-20) 16 mg/dL (7-20) 20 mg/dL (7-20) Creatinine 1.0 mg/dL (0.6-1.0) 1.0 mg/dL (0.6-1.0) 0.9 mg/dL (0.6-1.0) Estimated GFR (Cockcroft-Gault) 58.5 58.5 66.0 BUN/Creatinine Ratio 16 (6-20) 22 (6-20) Glucose Level 93 mg/dL (70-99) 100 mg/dL (70-99) 117 mg/dL (70-99) Calcium Level 8.7 mg/dL (8.5-10.1) 8.5 mg/dL (8.5-10.1) 8.1 mg/dL (8.5-10.1) Total Bilirubin 0.3 mg/dL (0.2-1.0) 0.2 mg/dL (0.2-1.0) Aspartate Amino Transf (AST/SGOT) 22 U/L (15-37) 16 U/L (15-37) Alanine Aminotransferase (ALT/SGPT) 31 U/L (14-59) 25 U/L (14-59) Alkaline Phosphatase 83 U/L (46-116) 78 U/L (46-116) Creatine Kinase 154 U/L (26-192) Creatine Kinase MB (Mass) 1.4 ng/mL (0.0-3.6) Creatine Kinase MB Relative Index 0.9 % (0-4) Troponin I Quantitative < 0.017 ng/mL (0.000-0.055) < 0.017 ng/mL (0.000-0.055) Total Protein 7.2 g/dL (6.4-8.2) 6.6 g/dL (6.4-8.2) Albumin 3.9 g/dL (3.4-5.0) 3.3 g/dL (3.4-5.0) Albumin/Globulin Ratio 1.2 (1.0-1.7) 1.0 (1.0-1.7) Magnesium Level 1.9 mg/dL (1.8-2.4) Triglycerides Level 160 mg/dL (0-150) Cholesterol Level 182 mg/dL (0-200) LDL Cholesterol, Calculated 103 mg/dL (0-100) VLDL Cholesterol, Calculated 32 mg/dL (0-40) Non-HDL Cholesterol Calculated 135 mg/dL (0-129) HDL Cholesterol 47 mg/dL (40-60) Cholesterol/HDL Ratio 3.9 Thyroid Stimulating Hormone (TSH) 5.985 uIU/mL (0.358-3.74) Laboratory Tests Test 03/08/19 08:50 03/09/19 03:50 Sodium Level 147 mmol/L (136-145) 144 mmol/L (136-145) Potassium Level 3.8 mmol/L (3.5-5.1) 4.0 mmol/L (3.5-5.1) Chloride Level 109 mmol/L (98-107) 107 mmol/L (98-107) Carbon Dioxide Level 32 mmol/L (21-32) 31 mmol/L (21-32) Anion Gap 6 (6-14) 6 (6-14) Blood Urea Nitrogen 16 mg/dL (7-20) 20 mg/dL (7-20) Creatinine 1.0 mg/dL (0.6-1.0) 0.9 mg/dL (0.6-1.0) Estimated GFR (Cockcroft-Gault) 58.5 66.0 Glucose Level 100 mg/dL (70-99) 117 mg/dL (70-99) Calcium Level 8.5 mg/dL (8.5-10.1) 8.1 mg/dL (8.5-10.1) Magnesium Level 1.9 mg/dL (1.8-2.4) Troponin I Quantitative < 0.017 ng/mL (0.000-0.055) Triglycerides Level 160 mg/dL (0-150) Cholesterol Level 182 mg/dL (0-200) LDL Cholesterol, Calculated 103 mg/dL (0-100) VLDL Cholesterol, Calculated 32 mg/dL (0-40) Non-HDL Cholesterol Calculated 135 mg/dL (0-129) HDL Cholesterol 47 mg/dL (40-60) Cholesterol/HDL Ratio 3.9 Thyroid Stimulating Hormone (TSH) 5.985 uIU/mL (0.358-3.74) White Blood Count 10.0 x10^3/uL (4.0-11.0) Red Blood Count 4.21 x10^6/uL (3.50-5.40) Hemoglobin 11.7 g/dL (12.0-15.5) Hematocrit 35.9 % (36.0-47.0) Mean Corpuscular Volume 85 fL (79-100) Mean Corpuscular Hemoglobin 28 pg (25-35) Mean Corpuscular Hemoglobin Concent 33 g/dL (31-37) Red Cell Distribution Width 15.6 % (11.5-14.5) Platelet Count 267 x10^3/uL (140-400) Neutrophils (%) (Auto) 61 % (31-73) Lymphocytes (%) (Auto) 26 % (24-48) Monocytes (%) (Auto) 8 % (0-9) Eosinophils (%) (Auto) 5 % (0-3) Basophils (%) (Auto) 0 % (0-3) Neutrophils # (Auto) 6.1 x10^3/uL (1.8-7.7) Lymphocytes # (Auto) 2.6 x10^3/uL (1.0-4.8) Monocytes # (Auto) 0.8 x10^3/uL (0.0-1.1) Eosinophils # (Auto) 0.5 x10^3/uL (0.0-0.7) Basophils # (Auto) 0.0 x10^3/uL (0.0-0.2) BUN/Creatinine Ratio 22 (6-20) Total Bilirubin 0.2 mg/dL (0.2-1.0) Aspartate Amino Transf (AST/SGOT) 16 U/L (15-37) Alanine Aminotransferase (ALT/SGPT) 25 U/L (14-59) Alkaline Phosphatase 78 U/L (46-116) Total Protein 6.6 g/dL (6.4-8.2) Albumin 3.3 g/dL (3.4-5.0) Albumin/Globulin Ratio 1.0 (1.0-1.7) Medications Current Medications Aspirin (Children'S Aspirin) 324 mg 1X ONCE PO Last administered on 03/07/19at 22:05; Start 03/07/19 at 21:45; Stop 03/07/19 at 21:47; Status DC Nitroglycerin (Nitrostat) 0.4 mg PRN Q5MIN PRN SL CP RATING > 1/10 Last administered on 03/07/19at 22:05; Start 03/07/19 at 21:45; Stop 03/08/19 at 21:44; Status DC Morphine Sulfate (Morphine Sulfate) 2 mg PRN Q15MIN PRN IV/SQ PAIN GREATER THAN 3/10 Last administered on 03/07/19at 22:26; Start 03/07/19 at 21:45; Stop 03/08/19 at 21:44; Status DC Ondansetron HCl (Zofran) 4 mg 1X ONCE IM ; Start 03/07/19 at 22:15; Stop 03/07/19 at 22:16; Status Cancel Ondansetron HCl (Zofran) 4 mg 1X ONCE IV Last administered on 03/07/19at 22:16; Start 03/07/19 at 22:15; Stop 03/07/19 at 22:21; Status DC Ondansetron HCl (Zofran) 4 mg STK-MED ONCE .ROUTE ; Start 03/07/19 at 22:11; Stop 03/07/19 at 22:15; Status DC Morphine Sulfate (Morphine Sulfate) 2 mg 1X ONCE IV Last administered on 03/08/19at 00:29; Start 03/07/19 at 22:45; Stop 03/07/19 at 22:53; Status DC Iohexol (Omnipaque 350 Mg/ml) 90 ml 1X ONCE IV Last administered on 03/07/19at 23:00; Start 03/07/19 at 23:00; Stop 03/07/19 at 23:01; Status DC Info (CONTRAST GIVEN -- Rx MONITORING) 1 each PRN DAILY PRN MC SEE COMMENTS; Start 03/07/19 at 23:00; Stop 03/09/19 at 22:59 Potassium Chloride (Klor-Con) 40 meq 1X ONCE PO Last administered on 03/08/19at 00:29; Start 03/07/19 at 23:45; Stop 03/07/19 at 23:46; Status DC Multi-Ingredient Mouthwash/Gargle (Gi Cocktail) 20 ml 1X ONCE SWSW Last administered on 03/08/19at 00:29; Start 03/08/19 at 00:00; Stop 03/08/19 at 00:03; Status DC Ondansetron HCl (Zofran) 4 mg PRN Q8HRS PRN IV NAUSEA/VOMITING; Start 03/08/19 at 00:45; Stop 03/09/19 at 00:44; Status DC Morphine Sulfate (Morphine Sulfate) 2 mg PRN Q2HR PRN IV PAIN; Start 03/08/19 at 00:45; Stop 03/09/19 at 00:44; Status UNV Acetaminophen (Tylenol) 650 mg PRN Q4HRS PRN PO FEVER; Start 03/08/19 at 00:45; Stop 03/09/19 at 00:44; Status UNV Nitroglycerin (Nitrostat) 0.4 mg PRN Q5MIN PRN SL CHEST PAIN; Start 03/08/19 at 00:45; Stop 03/09/19 at 00:44; Status DC Nitroglycerin (Nitrostat) 0.4 mg PRN Q5MIN PRN SL CHEST PAIN; Start 03/08/19 at 00:45; Status UNV Morphine Sulfate (Morphine Sulfate) 2 mg PRN Q2HR PRN IV PAIN MILD TO MOD Last administered on 03/08/19at 19:46; Start 03/08/19 at 00:45 Morphine Sulfate (Morphine Sulfate) 4 mg PRN Q2HR PRN IV PAIN SEVERE; Start 03/08/19 at 00:45 Zolpidem Tartrate (Ambien) 5 mg PRN QHS PRN PO INSOMNIA Last administered on 03/09/19at 00:03; Start 03/08/19 at 00:45 Ondansetron HCl (Zofran) 4 mg PRN Q4HRS PRN IV NAUSEA/VOMITING; Start 03/08/19 at 00:45; Status UNV Acetaminophen (Tylenol) 650 mg PRN Q6HRS PRN PO MILD PAIN / TEMP; Start 03/08/19 at 00:45; Status UNV Docusate Sodium (Colace) 100 mg PRN DAILY PRN PO CONSTIPATION; Start 03/08/19 at 00:45 Al Hydroxide/Mg Hydroxide (Mylanta Plus Xs) 30 ml PRN Q2HR PRN PO HEARTBURN / GAS; Start 03/08/19 at 00:45 Sodium Chloride (Normal Saline Flush) 3 ml QSHIFT PRN IV AFTER MEDS AND BLOOD DRAWS; Start 03/08/19 at 00:45; Status UNV Acetaminophen (Tylenol) 650 mg PRN Q6HRS PRN PO MILD PAIN / TEMP Last administered on 03/09/19at 06:07; Start 03/08/19 at 11:30 Sodium Chloride 1,000 ml @ 100 mls/hr 1X ONCE IV Last administered on 03/08/19at 12:19; Start 03/08/19 at 12:00; Stop 03/09/19 at 00:06; Status DC Lidocaine HCl (Xylocaine-Mpf 1% 2ml Vial) 2 ml STK-MED ONCE .ROUTE ; Start 03/08/19 at 14:23; Stop 03/08/19 at 14:24; Status DC Heparin Sodium/ Sodium Chloride 1,000 ml @ As Directed STK-MED ONCE .ROUTE ; Start 03/08/19 at 14:23; Stop 03/08/19 at 14:24; Status DC Iohexol (Omnipaque 300 Mg/ml) 100 ml STK-MED ONCE .ROUTE ; Start 03/08/19 at 14:35; Stop 03/08/19 at 14:39; Status DC Aspirin (Children'S Aspirin) 81 mg DAILY PO ; Start 03/09/19 at 09:00 Atorvastatin Calcium (Lipitor) 20 mg QHS PO Last administered on 03/08/19at 20:39; Start 03/08/19 at 21:00 Nitroglycerin (Nitroglycerin) 200 mcg STK-MED ONCE .ROUTE ; Start 03/08/19 at 15:38; Stop 03/08/19 at 15:39; Status DC Midazolam HCl (Versed) 2 mg STK-MED ONCE .ROUTE ; Start 03/08/19 at 15:43; Stop 03/08/19 at 15:43; Status DC Fentanyl Citrate (Fentanyl 2ml Vial) 100 mcg STK-MED ONCE .ROUTE ; Start 03/08/19 at 15:43; Stop 03/08/19 at 15:43; Status DC Verapamil HCl (Verapamil) 5 mg STK-MED ONCE .ROUTE ; Start 03/08/19 at 15:43; Stop 03/08/19 at 15:44; Status DC Heparin Sodium (Porcine) (Heparin Sodium) 10,000 unit STK-MED ONCE .ROUTE ; Start 03/08/19 at 15:43; Stop 03/08/19 at 15:44; Status DC Nitroglycerin (Nitroglycerin) 200 mcg 1X ONCE IART Last administered on 03/08/19at 16:15; Start 03/08/19 at 16:15; Stop 03/08/19 at 16:16; Status DC Verapamil HCl (Verapamil) 2.5 mg 1X ONCE IART Last administered on 03/08/19at 16:15; Start 03/08/19 at 16:15; Stop 03/08/19 at 16:16; Status DC Heparin Sodium (Porcine) (Heparin Sodium) 2,500 unit 1X ONCE IART Last administered on 03/08/19at 16:17; Start 03/08/19 at 16:15; Stop 03/08/19 at 16:16; Status DC Heparin Sodium/ Sodium Chloride (HEPARIN for ARTERIAL LINE FLUSH) 1,000 unit 1X ONCE IART Last administered on 03/08/19at 16:13; Start 03/08/19 at 16:15; Stop 03/08/19 at 16:16; Status DC Midazolam HCl (Versed) 2 mg 1X ONCE IV Last administered on 03/08/19at 16:15; Start 03/08/19 at 16:15; Stop 03/08/19 at 16:16; Status DC Fentanyl Citrate (Fentanyl 2ml Vial) 50 mcg 1X ONCE IV Last administered on 03/08/19at 16:15; Start 03/08/19 at 16:15; Stop 03/08/19 at 16:16; Status DC Iohexol (Omnipaque 300 Mg/ml) 48 ml 1X ONCE IART Last administered on 03/08/19at 16:15; Start 03/08/19 at 16:15; Stop 03/08/19 at 16:16; Status DC Lidocaine HCl (Xylocaine-Mpf 1% 2ml Vial) 2 ml 1X ONCE INJ Last administered on 03/08/19at 16:13; Start 03/08/19 at 16:15; Stop 03/08/19 at 16:16; Status DC Nitroglycerin (Nitroglycerin) 200 mcg STK-MED ONCE .ROUTE ; Start 03/08/19 at 16:13; Stop 03/08/19 at 16:13; Status DC Info (CONTRAST GIVEN -- Rx MONITORING) 1 each PRN DAILY PRN MC SEE COMMENTS; Start 03/08/19 at 16:15; Stop 03/10/19 at 16:14 Buspirone HCl (Buspar) 50 mg BID PO Last administered on 03/08/19at 20:39; Start 03/08/19 at 21:00 Cetirizine HCl (ZyrTEC) 10 mg DAILY PO ; Start 03/09/19 at 09:00 Hydrochlorothiazide (Hydrodiuril) 25 mg DAILY PO ; Start 03/09/19 at 09:00 Levothyroxine Sodium (Synthroid) 50 mcg DAILY06 PO Last administered on 03/09/19at 06:04; Start 03/09/19 at 06:00 Montelukast Sodium (Singulair) 10 mg HS PO Last administered on 03/08/19at 20:39; Start 03/08/19 at 21:00 Non-Formulary Medication (Buspirone Hcl ) 1 tab BID PO ; Start 03/08/19 at 21:00; Status UNV Levothyroxine Sodium (Synthroid) 200 mcg DAILY06 PO Last administered on 03/09/19at 06:04; Start 03/09/19 at 06:00 Simethicone (Gas-X) 80 mg PRN AFTMEALHC PRN PO GAS / BLOATING Last administered on 03/08/19at 19:46; Start 03/08/19 at 19:15 Active Scripts Active Reported Cetirizine Hcl 10 Mg Tablet 10 Mg PO DAILY [Fluoxetine] Hydrochlorothiazide 25 Mg Tablet 25 Mg PO DAILY Aspirin 81 Mg Tab.chew 1 Tab PO DAILY Montelukast Sodium Tablet (Montelukast Sodium) 10 Mg Tablet 10 Mg PO HS Buspirone Hcl 30 Mg Tablet 1 Tab PO BID Buspirone Hcl 10 Mg Tablet 2 Tab PO BID Synthroid (Levothyroxine Sodium) 200 Mcg Tablet 1 Tab PO DAILY Synthroid (Levothyroxine Sodium) 50 Mcg Tablet 1 Tab PO DAILY Vitals/I & O Vital Sign - Last 24 Hours 03/08/19 03/08/19 03/08/19 03/08/19 11:00 15:00 16:15 16:15 Temp 98.7 98.1 98.7 98.1 Pulse 80 82 77 Resp 12 B/P (MAP) 115/65 (82) 119/65 (83) Pulse Ox 93 95 95 O2 Delivery Room Air Room Air Nasal Cannula O2 Flow Rate 2.0 03/08/19 03/08/19 03/08/19 03/08/19 16:17 16:30 17:00 19:00 Temp 98.2 98.2 Pulse 77 86 86 88 Resp 15 18 B/P (MAP) 109/67 (81) 100/56 (71) 99/61 (74) Pulse Ox 98 96 95 O2 Delivery Nasal Cannula Room Air Room Air O2 Flow Rate 2.0 03/08/19 03/08/19 03/08/19 03/08/19 19:40 19:46 20:30 20:39 Pulse 87 Resp 18 16 B/P (MAP) 112/63 (79) Pulse Ox 93 97 O2 Delivery Room Air Room Air Room Air 03/08/19 03/09/19 03/09/19 23:26 03:20 07:00 Temp 98.3 98.0 98.0 98.3 98.0 98.0 Pulse 92 85 91 Resp 18 18 18 B/P (MAP) 96/54 (68) 103/62 (76) 117/62 (80) Pulse Ox 96 94 97 O2 Delivery Room Air Room Air Room Air Intake and Output 03/08/19 03/08/19 03/09/19 15:00 23:00 07:00 Intake Total 240 ml 780 ml 400 ml Output Total 250 ml Balance -10 ml 780 ml 400 ml KVNG ESTEVES MD Mar 09, 2019 08:27
[2019-03-09] MEDS: MAG HYDROX/ALUMINUM HYD/SIMETH 30 ML ORAL.SUSP PO PRN ×2 (08:46→22:15)
[2019-03-09] MEDS: ASPIRIN CHEWABLE 81 MG TABLET. PO SCH (08:46)
[2019-03-09] MEDS: hydroCHLOROthiazide 25 MG TABLET PO SCH (08:47)
[2019-03-09] MEDS: busPIRone 10 MG TABLET. PO SCH ×2 (08:47→20:42)
[2019-03-09] MEDS: CETIRIZINE HCL 10 MG TABLET. PO SCH (08:47)
[2019-03-09 11:00] VITALS: BP 100/62
[2019-03-09 15:00] VITALS: BP 102/59
[2019-03-09] MEDS: HYDROmorphone 2 MG/ML VIAL IV PRN (17:24)
[2019-03-09 19:00] VITALS: BP 104/55
[2019-03-09] MEDS: ATORVASTATIN CALCIUM 20 MG TABLET PO SCH (20:41)
[2019-03-09] MEDS: MONTELUKAST SODIUM 10 MG TABLET. PO SCH (20:42)
[2019-03-09] MEDS: FAMOTIDINE 20 MG/2 ML VIAL IVP SCH (20:42)
[2019-03-09] MEDS: MORPHINE SULFATE 2 MG/ML VIAL. IV PRN (20:43)
[2019-03-09 23:00] VITALS: BP 109/72
[2019-03-10 03:00] VITALS: BP 107/72
[2019-03-10 04:01] LABS: BASO % 0 % (0-3); EOS # 0.6 x10^3/uL (0.0-0.7); EOS % 7 % (0-3); HEMATOCRIT 36.8 % (36.0-47.0); HEMOGLOBIN 12.1 g/dL (12.0-15.5); LYMPH # 2.6 x10^3/uL (1.0-4.8); LYMPH % 29 % (24-48); MEAN CORPUSCULAR HEMOGLOBIN 28 pg (25-35); MEAN CORPUSCULAR HGB CONC 33 g/dL (31-37); MEAN CORPUSCULAR VOLUME 85 fL (79-100); MONO # 0.8 x10^3/uL (0.0-1.1); MONO % 9 % (0-9); NEUT % 56 % (31-73); PLATELET COUNT 276 x10^3/uL (140-400); RED BLOOD COUNT 4.32 x10^6/uL (3.50-5.40)
[2019-03-10 04:31] LABS: ALBUMIN 3.5 g/dL (3.4-5.0); CALCIUM 8.3 mg/dL (8.5-10.1); CREATININE 0.9 mg/dL (0.6-1.0); POTASSIUM 3.8 mmol/L (3.5-5.1); TOTAL BILIRUBIN 0.3 mg/dL (0.2-1.0); TOTAL PROTEIN 6.9 g/dL (6.4-8.2)
[2019-03-10] MEDS: HYDROmorphone 2 MG/ML VIAL IV PRN (04:43)
[2019-03-10] MEDS: LEVOTHYROXINE 50 MCG TABLET PO SCH (06:37)
[2019-03-10] MEDS: LEVOTHYROXINE 100 MCG TABLET PO SCH (06:38)
[2019-03-10 07:00] VITALS: BP 107/57
--- NOTE | 2019-03-10 07:36 | PDOC ---
PROGRESS NOTES History of Present Illness History of Present Illness VTE Prophylaxis Ordered VTE Prophylaxis Devices: Yes VTE Pharmacological Prophylaxi: Yes Assessment/Plan Assessment/Plan impression unstable angina Normal angiographic appearance of the coronary arteries. Hx of CM: C 3 yrs ago no intervention Hypothyroidism: hx of hashimotos Obesity, obesity Hyperlipidemia EPIGASTRIC PAIN, GB TENDERNESS plan admit cvc bed cardiology consult echo CARDIAC CATH OK ABD SONO 03/09 IV DILAUDID 1 MG Q 4 HRS PRN IV D/W RN 28 MIN pt exam, chart review, > 50% of time spent with exam, chart review, pt care coordination Vitals Vitals Vital Signs Date Time Temp Pulse Resp B/P (MAP) Pulse Ox O2 Delivery O2 Flow Rate FiO2 03/10/19 06:15 Room Air 03/10/19 03:00 98.3 86 18 107/72 (84) 98 98.3 Physical Exam General: Alert, Oriented X3, Cooperative, No acute distress, mild distress Heart: Regular rate (SR), Normal S1, Normal S2, Other (2/6 systolic apical murmur) Lungs: Clear Abdomen: Normal bowel sounds, Soft, Other (MILD RUQ TENDERNESS) Extremities: No cyanosis, No edema Skin: No breakdown, No significant lesion Labs LABS Ultrasound abdomen 03/09/2019 CLINICAL HISTORY: Abdominal pain. TECHNIQUE: A real-time ultrasound examination of the abdomen was performed. Multiple images were obtained. FINDINGS: The gallbladder is well-distended. No gallstones are visualized. The gallbladder wall thickness is within normal limits. No pericholecystic fluid is seen. The common bile duct measures 3 mm in diameter which is within normal limits. The liver is normal in size and echogenicity. It measures 17.6 cm in length. The spleen, visualized portions of the pancreas and both kidneys are within normal limits. The abdominal aorta tapers normally. The inferior vena cava is within normal limits. No free fluid is seen. IMPRESSION: Negative study. Electronically signed by: Esteban Rebolledo MD (03/10/2019 8:54 AM) [facility] Laboratory Tests Test 03/10/19 03:30 White Blood Count 9.0 x10^3/uL (4.0-11.0) Red Blood Count 4.32 x10^6/uL (3.50-5.40) Hemoglobin 12.1 g/dL (12.0-15.5) Hematocrit 36.8 % (36.0-47.0) Mean Corpuscular Volume 85 fL (79-100) Mean Corpuscular Hemoglobin 28 pg (25-35) Mean Corpuscular Hemoglobin Concent 33 g/dL (31-37) Red Cell Distribution Width 15.0 % (11.5-14.5) Platelet Count 276 x10^3/uL (140-400) Neutrophils (%) (Auto) 56 % (31-73) Lymphocytes (%) (Auto) 29 % (24-48) Monocytes (%) (Auto) 9 % (0-9) Eosinophils (%) (Auto) 7 % (0-3) Basophils (%) (Auto) 0 % (0-3) Neutrophils # (Auto) 5.0 x10^3/uL (1.8-7.7) Lymphocytes # (Auto) 2.6 x10^3/uL (1.0-4.8) Monocytes # (Auto) 0.8 x10^3/uL (0.0-1.1) Eosinophils # (Auto) 0.6 x10^3/uL (0.0-0.7) Basophils # (Auto) 0.0 x10^3/uL (0.0-0.2) Sodium Level 143 mmol/L (136-145) Potassium Level 3.8 mmol/L (3.5-5.1) Chloride Level 104 mmol/L (98-107) Carbon Dioxide Level 33 mmol/L (21-32) Anion Gap 6 (6-14) Blood Urea Nitrogen 16 mg/dL (7-20) Creatinine 0.9 mg/dL (0.6-1.0) Estimated GFR (Cockcroft-Gault) 66.0 BUN/Creatinine Ratio 18 (6-20) Glucose Level 111 mg/dL (70-99) Calcium Level 8.3 mg/dL (8.5-10.1) Total Bilirubin 0.3 mg/dL (0.2-1.0) Aspartate Amino Transf (AST/SGOT) 25 U/L (15-37) Alanine Aminotransferase (ALT/SGPT) 35 U/L (14-59) Alkaline Phosphatase 91 U/L (46-116) Total Protein 6.9 g/dL (6.4-8.2) Albumin 3.5 g/dL (3.4-5.0) Albumin/Globulin Ratio 1.0 (1.0-1.7) Assessment and Plan Assessmemt and Plan Problems Medical Problems: (1) Chest pain Status: Acute (2) HTN (hypertension) Status: Chronic (3) Hyperlipidemia Status: Chronic (4) Hypothyroidism Status: Chronic (5) Nausea Status: Acute Comment Review of Relevant I have reviewed the following items tisha (where applicable) has been applied. Labs Laboratory Tests Test 03/08/19 08:50 03/09/19 03:50 03/10/19 03:30 Sodium Level 147 mmol/L (136-145) 144 mmol/L (136-145) 143 mmol/L (136-145) Potassium Level 3.8 mmol/L (3.5-5.1) 4.0 mmol/L (3.5-5.1) 3.8 mmol/L (3.5-5.1) Chloride Level 109 mmol/L (98-107) 107 mmol/L (98-107) 104 mmol/L (98-107) Carbon Dioxide Level 32 mmol/L (21-32) 31 mmol/L (21-32) 33 mmol/L (21-32) Anion Gap 6 (6-14) 6 (6-14) 6 (6-14) Blood Urea Nitrogen 16 mg/dL (7-20) 20 mg/dL (7-20) 16 mg/dL (7-20) Creatinine 1.0 mg/dL (0.6-1.0) 0.9 mg/dL (0.6-1.0) 0.9 mg/dL (0.6-1.0) Estimated GFR (Cockcroft-Gault) 58.5 66.0 66.0 Glucose Level 100 mg/dL (70-99) 117 mg/dL (70-99) 111 mg/dL (70-99) Calcium Level 8.5 mg/dL (8.5-10.1) 8.1 mg/dL (8.5-10.1) 8.3 mg/dL (8.5-10.1) Magnesium Level 1.9 mg/dL (1.8-2.4) Troponin I Quantitative < 0.017 ng/mL (0.000-0.055) Triglycerides Level 160 mg/dL (0-150) Cholesterol Level 182 mg/dL (0-200) LDL Cholesterol, Calculated 103 mg/dL (0-100) VLDL Cholesterol, Calculated 32 mg/dL (0-40) Non-HDL Cholesterol Calculated 135 mg/dL (0-129) HDL Cholesterol 47 mg/dL (40-60) Cholesterol/HDL Ratio 3.9 Thyroid Stimulating Hormone (TSH) 5.985 uIU/mL (0.358-3.74) White Blood Count 10.0 x10^3/uL (4.0-11.0) 9.0 x10^3/uL (4.0-11.0) Red Blood Count 4.21 x10^6/uL (3.50-5.40) 4.32 x10^6/uL (3.50-5.40) Hemoglobin 11.7 g/dL (12.0-15.5) 12.1 g/dL (12.0-15.5) Hematocrit 35.9 % (36.0-47.0) 36.8 % (36.0-47.0) Mean Corpuscular Volume 85 fL (79-100) 85 fL (79-100) Mean Corpuscular Hemoglobin 28 pg (25-35) 28 pg (25-35) Mean Corpuscular Hemoglobin Concent 33 g/dL (31-37) 33 g/dL (31-37) Red Cell Distribution Width 15.6 % (11.5-14.5) 15.0 % (11.5-14.5) Platelet Count 267 x10^3/uL (140-400) 276 x10^3/uL (140-400) Neutrophils (%) (Auto) 61 % (31-73) 56 % (31-73) Lymphocytes (%) (Auto) 26 % (24-48) 29 % (24-48) Monocytes (%) (Auto) 8 % (0-9) 9 % (0-9) Eosinophils (%) (Auto) 5 % (0-3) 7 % (0-3) Basophils (%) (Auto) 0 % (0-3) 0 % (0-3) Neutrophils # (Auto) 6.1 x10^3/uL (1.8-7.7) 5.0 x10^3/uL (1.8-7.7) Lymphocytes # (Auto) 2.6 x10^3/uL (1.0-4.8) 2.6 x10^3/uL (1.0-4.8) Monocytes # (Auto) 0.8 x10^3/uL (0.0-1.1) 0.8 x10^3/uL (0.0-1.1) Eosinophils # (Auto) 0.5 x10^3/uL (0.0-0.7) 0.6 x10^3/uL (0.0-0.7) Basophils # (Auto) 0.0 x10^3/uL (0.0-0.2) 0.0 x10^3/uL (0.0-0.2) BUN/Creatinine Ratio 22 (6-20) 18 (6-20) Total Bilirubin 0.2 mg/dL (0.2-1.0) 0.3 mg/dL (0.2-1.0) Aspartate Amino Transf (AST/SGOT) 16 U/L (15-37) 25 U/L (15-37) Alanine Aminotransferase (ALT/SGPT) 25 U/L (14-59) 35 U/L (14-59) Alkaline Phosphatase 78 U/L (46-116) 91 U/L (46-116) Total Protein 6.6 g/dL (6.4-8.2) 6.9 g/dL (6.4-8.2) Albumin 3.3 g/dL (3.4-5.0) 3.5 g/dL (3.4-5.0) Albumin/Globulin Ratio 1.0 (1.0-1.7) 1.0 (1.0-1.7) Laboratory Tests Test 03/10/19 03:30 White Blood Count 9.0 x10^3/uL (4.0-11.0) Red Blood Count 4.32 x10^6/uL (3.50-5.40) Hemoglobin 12.1 g/dL (12.0-15.5) Hematocrit 36.8 % (36.0-47.0) Mean Corpuscular Volume 85 fL (79-100) Mean Corpuscular Hemoglobin 28 pg (25-35) Mean Corpuscular Hemoglobin Concent 33 g/dL (31-37) Red Cell Distribution Width 15.0 % (11.5-14.5) Platelet Count 276 x10^3/uL (140-400) Neutrophils (%) (Auto) 56 % (31-73) Lymphocytes (%) (Auto) 29 % (24-48) Monocytes (%) (Auto) 9 % (0-9) Eosinophils (%) (Auto) 7 % (0-3) Basophils (%) (Auto) 0 % (0-3) Neutrophils # (Auto) 5.0 x10^3/uL (1.8-7.7) Lymphocytes # (Auto) 2.6 x10^3/uL (1.0-4.8) Monocytes # (Auto) 0.8 x10^3/uL (0.0-1.1) Eosinophils # (Auto) 0.6 x10^3/uL (0.0-0.7) Basophils # (Auto) 0.0 x10^3/uL (0.0-0.2) Sodium Level 143 mmol/L (136-145) Potassium Level 3.8 mmol/L (3.5-5.1) Chloride Level 104 mmol/L (98-107) Carbon Dioxide Level 33 mmol/L (21-32) Anion Gap 6 (6-14) Blood Urea Nitrogen 16 mg/dL (7-20) Creatinine 0.9 mg/dL (0.6-1.0) Estimated GFR (Cockcroft-Gault) 66.0 BUN/Creatinine Ratio 18 (6-20) Glucose Level 111 mg/dL (70-99) Calcium Level 8.3 mg/dL (8.5-10.1) Total Bilirubin 0.3 mg/dL (0.2-1.0) Aspartate Amino Transf (AST/SGOT) 25 U/L (15-37) Alanine Aminotransferase (ALT/SGPT) 35 U/L (14-59) Alkaline Phosphatase 91 U/L (46-116) Total Protein 6.9 g/dL (6.4-8.2) Albumin 3.5 g/dL (3.4-5.0) Albumin/Globulin Ratio 1.0 (1.0-1.7) Medications Current Medications Aspirin (Children'S Aspirin) 324 mg 1X ONCE PO Last administered on 03/07/19at 22:05; Start 03/07/19 at 21:45; Stop 03/07/19 at 21:47; Status DC Nitroglycerin (Nitrostat) 0.4 mg PRN Q5MIN PRN SL CP RATING > 1/10 Last administered on 03/07/19at 22:05; Start 03/07/19 at 21:45; Stop 03/08/19 at 21:44; Status DC Morphine Sulfate (Morphine Sulfate) 2 mg PRN Q15MIN PRN IV/SQ PAIN GREATER THAN 3/10 Last administered on 03/07/19at 22:26; Start 03/07/19 at 21:45; Stop 03/08/19 at 21:44; Status DC Ondansetron HCl (Zofran) 4 mg 1X ONCE IM ; Start 03/07/19 at 22:15; Stop 03/07/19 at 22:16; Status Cancel Ondansetron HCl (Zofran) 4 mg 1X ONCE IV Last administered on 03/07/19at 22:16; Start 03/07/19 at 22:15; Stop 03/07/19 at 22:21; Status DC Ondansetron HCl (Zofran) 4 mg STK-MED ONCE .ROUTE ; Start 03/07/19 at 22:11; Stop 03/07/19 at 22:15; Status DC Morphine Sulfate (Morphine Sulfate) 2 mg 1X ONCE IV Last administered on 03/08/19at 00:29; Start 03/07/19 at 22:45; Stop 03/07/19 at 22:53; Status DC Iohexol (Omnipaque 350 Mg/ml) 90 ml 1X ONCE IV Last administered on 03/07/19at 23:00; Start 03/07/19 at 23:00; Stop 03/07/19 at 23:01; Status DC Info (CONTRAST GIVEN -- Rx MONITORING) 1 each PRN DAILY PRN MC SEE COMMENTS; Start 03/07/19 at 23:00; Stop 03/09/19 at 22:59; Status DC Potassium Chloride (Klor-Con) 40 meq 1X ONCE PO Last administered on 03/08/19at 00:29; Start 03/07/19 at 23:45; Stop 03/07/19 at 23:46; Status DC Multi-Ingredient Mouthwash/Gargle (Gi Cocktail) 20 ml 1X ONCE SWSW Last administered on 03/08/19at 00:29; Start 03/08/19 at 00:00; Stop 03/08/19 at 00:03; Status DC Ondansetron HCl (Zofran) 4 mg PRN Q8HRS PRN IV NAUSEA/VOMITING; Start 03/08/19 at 00:45; Stop 03/09/19 at 00:44; Status DC Morphine Sulfate (Morphine Sulfate) 2 mg PRN Q2HR PRN IV PAIN; Start 03/08/19 at 00:45; Stop 03/09/19 at 00:44; Status UNV Acetaminophen (Tylenol) 650 mg PRN Q4HRS PRN PO FEVER; Start 03/08/19 at 00:45; Stop 03/09/19 at 00:44; Status UNV Nitroglycerin (Nitrostat) 0.4 mg PRN Q5MIN PRN SL CHEST PAIN; Start 03/08/19 at 00:45; Stop 03/09/19 at 00:44; Status DC Nitroglycerin (Nitrostat) 0.4 mg PRN Q5MIN PRN SL CHEST PAIN; Start 03/08/19 at 00:45; Status UNV Morphine Sulfate (Morphine Sulfate) 2 mg PRN Q2HR PRN IV PAIN MILD TO MOD Last administered on 03/09/19at 20:43; Start 03/08/19 at 00:45 Morphine Sulfate (Morphine Sulfate) 4 mg PRN Q2HR PRN IV SEVERE PAIN (1st Choice); Start 03/08/19 at 00:45 Zolpidem Tartrate (Ambien) 5 mg PRN QHS PRN PO INSOMNIA Last administered on 03/09/19at 22:16; Start 03/08/19 at 00:45 Ondansetron HCl (Zofran) 4 mg PRN Q4HRS PRN IV NAUSEA/VOMITING; Start 03/08/19 at 00:45; Status UNV Acetaminophen (Tylenol) 650 mg PRN Q6HRS PRN PO MILD PAIN / TEMP; Start 03/08/19 at 00:45; Status UNV Docusate Sodium (Colace) 100 mg PRN DAILY PRN PO CONSTIPATION; Start 03/08/19 at 00:45 Al Hydroxide/Mg Hydroxide (Mylanta Plus Xs) 30 ml PRN Q2HR PRN PO HEARTBURN / GAS Last administered on 03/09/19at 22:16; Start 03/08/19 at 00:45 Sodium Chloride (Normal Saline Flush) 3 ml QSHIFT PRN IV AFTER MEDS AND BLOOD DRAWS; Start 03/08/19 at 00:45; Status UNV Acetaminophen (Tylenol) 650 mg PRN Q6HRS PRN PO MILD PAIN / TEMP Last administered on 03/09/19at 22:08; Start 03/08/19 at 11:30 Sodium Chloride 1,000 ml @ 100 mls/hr 1X ONCE IV Last administered on 03/08/19at 12:19; Start 03/08/19 at 12:00; Stop 03/09/19 at 00:06; Status DC Lidocaine HCl (Xylocaine-Mpf 1% 2ml Vial) 2 ml STK-MED ONCE .ROUTE ; Start 03/08/19 at 14:23; Stop 03/08/19 at 14:24; Status DC Heparin Sodium/ Sodium Chloride 1,000 ml @ As Directed STK-MED ONCE .ROUTE ; Start 03/08/19 at 14:23; Stop 03/08/19 at 14:24; Status DC Iohexol (Omnipaque 300 Mg/ml) 100 ml STK-MED ONCE .ROUTE ; Start 03/08/19 at 14:35; Stop 03/08/19 at 14:39; Status DC Aspirin (Children'S Aspirin) 81 mg DAILY PO Last administered on 03/09/19at 08:47; Start 03/09/19 at 09:00 Atorvastatin Calcium (Lipitor) 20 mg QHS PO Last administered on 03/09/19at 20:43; Start 03/08/19 at 21:00 Nitroglycerin (Nitroglycerin) 200 mcg STK-MED ONCE .ROUTE ; Start 03/08/19 at 15:38; Stop 03/08/19 at 15:39; Status DC Midazolam HCl (Versed) 2 mg STK-MED ONCE .ROUTE ; Start 03/08/19 at 15:43; Stop 03/08/19 at 15:43; Status DC Fentanyl Citrate (Fentanyl 2ml Vial) 100 mcg STK-MED ONCE .ROUTE ; Start 03/08/19 at 15:43; Stop 03/08/19 at 15:43; Status DC Verapamil HCl (Verapamil) 5 mg STK-MED ONCE .ROUTE ; Start 03/08/19 at 15:43; Stop 03/08/19 at 15:44; Status DC Heparin Sodium (Porcine) (Heparin Sodium) 10,000 unit STK-MED ONCE .ROUTE ; Sta rt 03/08/19 at 15:43; Stop 03/08/19 at 15:44; Status DC Nitroglycerin (Nitroglycerin) 200 mcg 1X ONCE IART Last administered on 03/08/19at 16:15; Start 03/08/19 at 16:15; Stop 03/08/19 at 16:16; Status DC Verapamil HCl (Verapamil) 2.5 mg 1X ONCE IART Last administered on 03/08/19at 16:15; Start 03/08/19 at 16:15; Stop 03/08/19 at 16:16; Status DC Heparin Sodium (Porcine) (Heparin Sodium) 2,500 unit 1X ONCE IART Last administered on 03/08/19at 16:17; Start 03/08/19 at 16:15; Stop 03/08/19 at 16:16; Status DC Heparin Sodium/ Sodium Chloride (HEPARIN for ARTERIAL LINE FLUSH) 1,000 unit 1X ONCE IART Last administered on 03/08/19at 16:13; Start 03/08/19 at 16:15; Stop 03/08/19 at 16:16; Status DC Midazolam HCl (Versed) 2 mg 1X ONCE IV Last administered on 03/08/19 16:15; Start 03/08/19 at 16:15; Stop 03/08/19 at 16:16; Status DC Fentanyl Citrate (Fentanyl 2ml Vial) 50 mcg 1X ONCE IV Last administered on 03/08/19 16:15; Start 03/08/19 at 16:15; Stop 03/08/19 at 16:16; Status DC Iohexol (Omnipaque 300 Mg/ml) 48 ml 1X ONCE IART Last administered on 03/08/19 16:15; Start 03/08/19 at 16:15; Stop 03/08/19 at 16:16; Status DC Lidocaine HCl (Xylocaine-Mpf 1% 2ml Vial) 2 ml 1X ONCE INJ Last administered on 03/08/19 16:13; Start 03/08/19 at 16:15; Stop 03/08/19 at 16:16; Status DC Nitroglycerin (Nitroglycerin) 200 mcg STK-MED ONCE .ROUTE ; Start 03/08/19 at 16:13; Stop 03/08/19 at 16:13; Status DC Info (CONTRAST GIVEN -- Rx MONITORING) 1 each PRN DAILY PRN MC SEE COMMENTS; Start 03/08/19 at 16:15; Stop 03/10/19 at 16:14 Buspirone HCl (Buspar) 50 mg BID PO Last administered on 03/09/19 20:43; Start 03/08/19 at 21:00 Cetirizine HCl (ZyrTEC) 10 mg DAILY PO Last administered on 03/09/19 08:47; Start 03/09/19 at 09:00 Hydrochlorothiazide (Hydrodiuril) 25 mg DAILY PO Last administered on 03/09/19 08:47; Start 03/09/19 at 09:00 Levothyroxine Sodium (Synthroid) 50 mcg DAILY06 PO Last administered on 03/10/19 06:39; Start 03/09/19 at 06:00 Montelukast Sodium (Singulair) 10 mg HS PO Last administered on 03/09/19 20:43; Start 03/08/19 at 21:00 Non-Formulary Medication (Buspirone Hcl ) 1 tab BID PO ; Start 03/08/19 at 21:00; Status UNV Levothyroxine Sodium (Synthroid) 200 mcg DAILY06 PO Last administered on 03/10/19 06:39; Start 03/09/19 at 06:00 Simethicone (Gas-X) 80 mg PRN AFTMEALHC PRN PO GAS / BLOATING Last administered on 03/08/19at 19:46; Start 03/08/19 at 19:15 Hydromorphone HCl (Dilaudid) 1 mg PRN Q4HRS PRN IV SEVERE PAIN (2nd Choice) Last administered on 03/10/19 04:43; Start 03/09/19 at 16:15 Famotidine (Pepcid Vial) 20 mg BID IVP Last administered on 03/09/19 20:43; Start 03/09/19 at 21:00 Active Scripts Active Reported Cetirizine Hcl 10 Mg Tablet 10 Mg PO DAILY [Fluoxetine] Hydrochlorothiazide 25 Mg Tablet 25 Mg PO DAILY Aspirin 81 Mg Tab.chew 1 Tab PO DAILY Montelukast Sodium Tablet (Montelukast Sodium) 10 Mg Tablet 10 Mg PO HS Buspirone Hcl 30 Mg Tablet 1 Tab PO BID Buspirone Hcl 10 Mg Tablet 2 Tab PO BID Synthroid (Levothyroxine Sodium) 200 Mcg Tablet 1 Tab PO DAILY Synthroid (Levothyroxine Sodium) 50 Mcg Tablet 1 Tab PO DAILY Vitals/I & O Vital Sign - Last 24 Hours 03/09/19 03/09/19 03/09/19 03/09/19 11:00 15:00 17:24 19:00 Temp 99.2 98.3 98.8 99.2 98.3 98.8 Pulse 83 72 89 Resp 18 18 18 B/P (MAP) 100/62 (75) 102/59 (73) 104/55 (71) Pulse Ox 91 94 94 O2 Delivery Room Air Room Air Room Air Room Air 03/09/19 03/09/19 03/09/19 03/09/19 20:00 20:43 22:18 23:00 Temp 98.6 98.6 Pulse 69 Resp 18 B/P (MAP) 109/72 (84) Pulse Ox 94 O2 Delivery Room Air Room Air Room Air Room Air 03/10/19 03/10/19 03:00 06:15 Temp 98.3 98.3 Pulse 86 Resp 18 B/P (MAP) 107/72 (84) Pulse Ox 98 O2 Delivery Room Air Room Air Intake and Output 03/09/19 03/09/19 03/10/19 15:00 23:00 07:00 Intake Total 730 ml 50 ml Balance 730 ml 50 ml KVNG ESTEVES MD Mar 10, 2019 07:36
[2019-03-10] MEDS: hydroCHLOROthiazide 25 MG TABLET PO SCH (08:16)
[2019-03-10] MEDS: CETIRIZINE HCL 10 MG TABLET. PO SCH (08:16)
[2019-03-10] MEDS: ASPIRIN CHEWABLE 81 MG TABLET. PO SCH (08:16)
[2019-03-10] MEDS: ACETAMINOPHEN 325 MG TABLET. PO PRN ×2 (08:16→14:54)
[2019-03-10] MEDS: FAMOTIDINE 20 MG/2 ML VIAL IVP SCH (08:17)
[2019-03-10] MEDS: busPIRone 10 MG TABLET. PO SCH (08:46)
--- NOTE | 2019-03-10 08:57 | RAD ---
Ultrasound abdomen 03/09/2019 CLINICAL HISTORY: Abdominal pain. TECHNIQUE: A real-time ultrasound examination of the abdomen was performed. Multiple images were obtained. FINDINGS: The gallbladder is well-distended. No gallstones are visualized. The gallbladder wall thickness is within normal limits. No pericholecystic fluid is seen. The common bile duct measures 3 mm in diameter which is within normal limits. The liver is normal in size and echogenicity. It measures 17.6 cm in length. The spleen, visualized portions of the pancreas and both kidneys are within normal limits. The abdominal aorta tapers normally. The inferior vena cava is within normal limits. No free fluid is seen. IMPRESSION: Negative study. Electronically signed by: Esteban Rebolledo MD (03/10/2019 8:54 AM) [facility]
[2019-03-10 11:00] VITALS: BP 96/62
[2019-03-10] MEDS: MAG HYDROX/ALUMINUM HYD/SIMETH 30 ML ORAL.SUSP PO PRN (11:46)
--- NOTE | 2019-03-10 14:46 | PDOC3 ---
Discharge Summary Date of Admission: Mar 07, 2019 Date of Discharge: Mar 10, 2019 Follow-Up: 3-5 days Admitting Diagnosis comment: DISCHARGE DX Assessment/Plan impression unstable angina Normal angiographic appearance of the coronary arteries. Hx of CM: LHC 3 yrs ago no intervention Hypothyroidism: hx of hashimotos Obesity, obesity Hyperlipidemia EPIGASTRIC PAIN, GB TENDERNESS GERD plan admit cvc bed cardiology consult echo CARDIAC CATH OK ABD SONO 03/09 IV DILAUDID 1 MG Q 4 HRS PRN IV D/C D/W RN PROTONIX 40MG PO Q DAY SEE GI SOON OUTPT 28 MIN pt exam, chart review D/C PLANNING , > 50% of time spent with exam, chart review, pt care coordination Vitals Vitals Vital Signs Date Time Temp Pulse Resp B/P (MAP) Pulse Ox O2 Delivery O2 Flow Rate FiO2 03/10/19 06:15 Room Air 03/10/19 03:00 98.3 86 18 107/72 (84) 98 98.3 Physical Exam General: Alert, Oriented X3, Cooperative, No acute distress, mild distress Heart: Regular rate (SR), Normal S1, Normal S2, Other (2/6 systolic apical murmur) Lungs: Clear Abdomen: Normal bowel sounds, Soft, Other (MILD RUQ TENDERNESS) Extremities: No cyanosis, No edema Skin: No breakdown, No significant lesion Labs LABS Ultrasound abdomen 03/09/2019 CLINICAL HISTORY: Abdominal pain. TECHNIQUE: A real-time ultrasound examination of the abdomen was performed. Multiple images were obtained. FINDINGS: The gallbladder is well-distended. No gallstones are visualized. The gallbladder wall thickness is within normal limits. No pericholecystic fluid is seen. The common bile duct measures 3 mm in diameter which is within normal limits. The liver is normal in size and echogenicity. It measures 17.6 cm in length. The spleen, visualized portions of the pancreas and both kidneys are within normal limits. The abdominal aorta tapers normally. The inferior vena cava is within normal limits. No free fluid is seen. IMPRESSION: Negative study. Electronically signed by: Esteban Rebolledo MD (03/10/2019 8:54 AM) [facility] FINAL DIAGNOSIS Problems Medical Problems: (1) Chest pain Status: Acute (2) HTN (hypertension) Status: Chronic (3) Hyperlipidemia Status: Chronic (4) Hypothyroidism Status: Chronic (5) Nausea Status: Acute Brief Hospital Course Ms. Jeffries is a 53 old [sex] who presented with [ CHEST, EPIGASTRIC PAIN] CONDITION AT DISCHARGE: Improved Discharge Medications Current Medications Aspirin (Children'S Aspirin) 324 mg 1X ONCE PO Last administered on 03/07/19at 22:05; Start 03/07/19 at 21:45; Stop 03/07/19 at 21:47; Status DC Nitroglycerin (Nitrostat) 0.4 mg PRN Q5MIN PRN SL CP RATING > 1/10 Last administered on 03/07/19at 22:05; Start 03/07/19 at 21:45; Stop 03/08/19 at 21:44; Status DC Morphine Sulfate (Morphine Sulfate) 2 mg PRN Q15MIN PRN IV/SQ PAIN GREATER THAN 3/10 Last administered on 03/07/19at 22:26; Start 03/07/19 at 21:45; Stop 03/08/19 at 21:44; Status DC Ondansetron HCl (Zofran) 4 mg 1X ONCE IM ; Start 03/07/19 at 22:15; Stop 03/07/19 at 22:16; Status Cancel Ondansetron HCl (Zofran) 4 mg 1X ONCE IV Last administered on 03/07/19at 22:16; Start 03/07/19 at 22:15; Stop 03/07/19 at 22:21; Status DC Ondansetron HCl (Zofran) 4 mg STK-MED ONCE .ROUTE ; Start 03/07/19 at 22:11; Stop 03/07/19 at 22:15; Status DC Morphine Sulfate (Morphine Sulfate) 2 mg 1X ONCE IV Last administered on 03/08/19at 00:29; Start 03/07/19 at 22:45; Stop 03/07/19 at 22:53; Status DC Iohexol (Omnipaque 350 Mg/ml) 90 ml 1X ONCE IV Last administered on 03/07/19at 23:00; Start 03/07/19 at 23:00; Stop 03/07/19 at 23:01; Status DC Info (CONTRAST GIVEN -- Rx MONITORING) 1 each PRN DAILY PRN MC SEE COMMENTS; Start 03/07/19 at 23:00; Stop 03/09/19 at 22:59; Status DC Potassium Chloride (Klor-Con) 40 meq 1X ONCE PO Last administered on 03/08/19at 00:29; Start 03/07/19 at 23:45; Stop 03/07/19 at 23:46; Status DC Multi-Ingredient Mouthwash/Gargle (Gi Cocktail) 20 ml 1X ONCE SWSW Last administered on 03/08/19at 00:29; Start 03/08/19 at 00:00; Stop 03/08/19 at 00:03; Status DC Ondansetron HCl (Zofran) 4 mg PRN Q8HRS PRN IV NAUSEA/VOMITING; Start 03/08/19 at 00:45; Stop 03/09/19 at 00:44; Status DC Morphine Sulfate (Morphine Sulfate) 2 mg PRN Q2HR PRN IV PAIN; Start 03/08/19 at 00:45; Stop 03/09/19 at 00:44; Status UNV Acetaminophen (Tylenol) 650 mg PRN Q4HRS PRN PO FEVER; Start 03/08/19 at 00:45; Stop 03/09/19 at 00:44; Status UNV Nitroglycerin (Nitrostat) 0.4 mg PRN Q5MIN PRN SL CHEST PAIN; Start 03/08/19 at 00:45; Stop 03/09/19 at 00:44; Status DC Nitroglycerin (Nitrostat) 0.4 mg PRN Q5MIN PRN SL CHEST PAIN; Start 03/08/19 at 00:45; Status UNV Morphine Sulfate (Morphine Sulfate) 2 mg PRN Q2HR PRN IV PAIN MILD TO MOD Last administered on 03/09/19at 20:43; Start 03/08/19 at 00:45 Morphine Sulfate (Morphine Sulfate) 4 mg PRN Q2HR PRN IV SEVERE PAIN (1st Choice); Start 03/08/19 at 00:45 Zolpidem Tartrate (Ambien) 5 mg PRN QHS PRN PO INSOMNIA Last administered on 03/09/19at 22:16; Start 03/08/19 at 00:45 Ondansetron HCl (Zofran) 4 mg PRN Q4HRS PRN IV NAUSEA/VOMITING; Start 03/08/19 at 00:45; Status UNV Acetaminophen (Tylenol) 650 mg PRN Q6HRS PRN PO MILD PAIN / TEMP; Start 03/08/19 at 00:45; Status UNV Docusate Sodium (Colace) 100 mg PRN DAILY PRN PO CONSTIPATION; Start 03/08/19 at 00:45 Al Hydroxide/Mg Hydroxide (Mylanta Plus Xs) 30 ml PRN Q2HR PRN PO HEARTBURN / GAS Last administered on 03/10/19at 11:47; Start 03/08/19 at 00:45 Sodium Chloride (Normal Saline Flush) 3 ml QSHIFT PRN IV AFTER MEDS AND BLOOD DRAWS; Start 03/08/19 at 00:45; Status UNV Acetaminophen (Tylenol) 650 mg PRN Q6HRS PRN PO MILD PAIN / TEMP Last adminis tered on 03/10/19at 08:17; Start 03/08/19 at 11:30 Sodium Chloride 1,000 ml @ 100 mls/hr 1X ONCE IV Last administered on 03/08/19a t 12:19; Start 03/08/19 at 12:00; Stop 03/09/19 at 00:06; Status DC Lidocaine HCl (Xylocaine-Mpf 1% 2ml Vial) 2 ml STK-MED ONCE .ROUTE ; Start 03/08/19 at 14:23; Stop 03/08/19 at 14:24; Status DC Heparin Sodium/ Sodium Chloride 1,000 ml @ As Directed STK-MED ONCE .ROUTE ; Start 03/08/19 at 14:23; Stop 03/08/19 at 14:24; Status DC Iohexol (Omnipaque 300 Mg/ml) 100 ml STK-MED ONCE .ROUTE ; Start 03/08/19 at 14:35; Stop 03/08/19 at 14:39; Status DC Aspirin (Children'S Aspirin) 81 mg DAILY PO Last administered on 03/10/19at 08:17; Start 03/09/19 at 09:00 Atorvastatin Calcium (Lipitor) 20 mg QHS PO Last administered on 03/09/19at 20:43; Start 03/08/19 at 21:00 Nitroglycerin (Nitroglycerin) 200 mcg STK-MED ONCE .ROUTE ; Start 03/08/19 at 15:38; Stop 03/08/19 at 15:39; Status DC Midazolam HCl (Versed) 2 mg STK-MED ONCE .ROUTE ; Start 03/08/19 at 15:43; Stop 03/08/19 at 15:43; Status DC Fentanyl Citrate (Fentanyl 2ml Vial) 100 mcg STK-MED ONCE .ROUTE ; Start 03/08/19 at 15:43; Stop 03/08/19 at 15:43; Status DC Verapamil HCl (Verapamil) 5 mg STK-MED ONCE .ROUTE ; Start 03/08/19 at 15:43; Stop 03/08/19 at 15:44; Status DC Heparin Sodium (Porcine) (Heparin Sodium) 10,000 unit STK-MED ONCE .ROUTE ; Start 03/08/19 at 15:43; Stop 03/08/19 at 15:44; Status DC Nitroglycerin (Nitroglycerin) 200 mcg 1X ONCE IART Last administered on 03/08/19at 16:15; Start 03/08/19 at 16:15; Stop 03/08/19 at 16:16; Status DC Verapamil HCl (Verapamil) 2.5 mg 1X ONCE IART Last administered on 03/08/19at 16:15; Start 03/08/19 at 16:15; Stop 03/08/19 at 16:16; Status DC Heparin Sodium (Porcine) (Heparin Sodium) 2,500 unit 1X ONCE IART Last administered on 03/08/19 16:17; Start 03/08/19 at 16:15; Stop 03/08/19 at 16:16; Status DC Heparin Sodium/ Sodium Chloride (HEPARIN for ARTERIAL LINE FLUSH) 1,000 unit 1X ONCE IART Last administered on 03/08/19at 16:13; Start 03/08/19 at 16:15; Stop 03/08/19 at 16:16; Status DC Midazolam HCl (Versed) 2 mg 1X ONCE IV Last administered on 03/08/19 16:15; Start 03/08/19 at 16:15; Stop 03/08/19 at 16:16; Status DC Fentanyl Citrate (Fentanyl 2ml Vial) 50 mcg 1X ONCE IV Last administered on 03/08/19 16:15; Start 03/08/19 at 16:15; Stop 03/08/19 at 16:16; Status DC Iohexol (Omnipaque 300 Mg/ml) 48 ml 1X ONCE IART Last administered on 03/08/19at 16:15; Start 03/08/19 at 16:15; Stop 03/08/19 at 16:16; Status DC Lidocaine HCl (Xylocaine-Mpf 1% 2ml Vial) 2 ml 1X ONCE INJ Last administered on 03/08/19at 16:13; Start 03/08/19 at 16:15; Stop 03/08/19 at 16:16; Status DC Nitroglycerin (Nitroglycerin) 200 mcg STK-MED ONCE .ROUTE ; Start 03/08/19 at 16:13; Stop 03/08/19 at 16:13; Status DC Info (CONTRAST GIVEN -- Rx MONITORING) 1 each PRN DAILY PRN MC SEE COMMENTS; Start 03/08/19 at 16:15; Stop 03/10/19 at 16:14 Buspirone HCl (Buspar) 50 mg BID PO Last administered on 03/10/19 08:50; Start 03/08/19 at 21:00 Cetirizine HCl (ZyrTEC) 10 mg DAILY PO Last administered on 03/10/19 08:17; Start 03/09/19 at 09:00 Hydrochlorothiazide (Hydrodiuril) 25 mg DAILY PO Last administered on 03/10/19 08:17; Start 03/09/19 at 09:00 Levothyroxine Sodium (Synthroid) 50 mcg DAILY06 PO Last administered on 03/10/19 06:39; Start 03/09/19 at 06:00 Montelukast Sodium (Singulair) 10 mg HS PO Last administered on 03/09/19at 20:43; Start 03/08/19 at 21:00 Non-Formulary Medication (Buspirone Hcl ) 1 tab BID PO ; Start 03/08/19 at 21:00; Status UNV Levothyroxine Sodium (Synthroid) 200 mcg DAILY06 PO Last administered on 03/10/19 06:39; Start 03/09/19 at 06:00 Simethicone (Gas-X) 80 mg PRN AFTMEALHC PRN PO GAS / BLOATING Last administered on 03/08/19at 19:46; Start 03/08/19 at 19:15 Hydromorphone HCl (Dilaudid) 1 mg PRN Q4HRS PRN IV SEVERE PAIN (2nd Choice) Last administered on 03/10/19at 04:43; Start 03/09/19 at 16:15 Famotidine (Pepcid Vial) 20 mg BID IVP Last administered on 03/10/19at 08:17; Start 03/09/19 at 21:00 Active Scripts Active Reported Cetirizine Hcl 10 Mg Tablet 10 Mg PO DAILY [Fluoxetine] Hydrochlorothiazide 25 Mg Tablet 25 Mg PO DAILY Aspirin 81 Mg Tab.chew 1 Tab PO DAILY Montelukast Sodium Tablet (Montelukast Sodium) 10 Mg Tablet 10 Mg PO HS Buspirone Hcl 30 Mg Tablet 1 Tab PO BID Buspirone Hcl 10 Mg Tablet 2 Tab PO BID Synthroid (Levothyroxine Sodium) 200 Mcg Tablet 1 Tab PO DAILY Synthroid (Levothyroxine Sodium) 50 Mcg Tablet 1 Tab PO DAILY Vital Signs Vital Signs Date Time Temp Pulse Resp B/P (MAP) Pulse Ox O2 Delivery O2 Flow Rate FiO2 03/10/19 11:00 98.7 81 16 96/62 (73) 92 Room Air 98.7 Labs Laboratory Tests Test 03/09/19 03:50 03/10/19 03:30 White Blood Count 10.0 x10^3/uL (4.0-11.0) 9.0 x10^3/uL (4.0-11.0) Red Blood Count 4.21 x10^6/uL (3.50-5.40) 4.32 x10^6/uL (3.50-5.40) Hemoglobin 11.7 g/dL (12.0-15.5) 12.1 g/dL (12.0-15.5) Hematocrit 35.9 % (36.0-47.0) 36.8 % (36.0-47.0) Mean Corpuscular Volume 85 fL (79-100) 85 fL (79-100) Mean Corpuscular Hemoglobin 28 pg (25-35) 28 pg (25-35) Mean Corpuscular Hemoglobin Concent 33 g/dL (31-37) 33 g/dL (31-37) Red Cell Distribution Width 15.6 % (11.5-14.5) 15.0 % (11.5-14.5) Platelet Count 267 x10^3/uL (140-400) 276 x10^3/uL (140-400) Neutrophils (%) (Auto) 61 % (31-73) 56 % (31-73) Lymphocytes (%) (Auto) 26 % (24-48) 29 % (24-48) Monocytes (%) (Auto) 8 % (0-9) 9 % (0-9) Eosinophils (%) (Auto) 5 % (0-3) 7 % (0-3) Basophils (%) (Auto) 0 % (0-3) 0 % (0-3) Neutrophils # (Auto) 6.1 x10^3/uL (1.8-7.7) 5.0 x10^3/uL (1.8-7.7) Lymphocytes # (Auto) 2.6 x10^3/uL (1.0-4.8) 2.6 x10^3/uL (1.0-4.8) Monocytes # (Auto) 0.8 x10^3/uL (0.0-1.1) 0.8 x10^3/uL (0.0-1.1) Eosinophils # (Auto) 0.5 x10^3/uL (0.0-0.7) 0.6 x10^3/uL (0.0-0.7) Basophils # (Auto) 0.0 x10^3/uL (0.0-0.2) 0.0 x10^3/uL (0.0-0.2) Sodium Level 144 mmol/L (136-145) 143 mmol/L (136-145) Potassium Level 4.0 mmol/L (3.5-5.1) 3.8 mmol/L (3.5-5.1) Chloride Level 107 mmol/L (98-107) 104 mmol/L (98-107) Carbon Dioxide Level 31 mmol/L (21-32) 33 mmol/L (21-32) Anion Gap 6 (6-14) 6 (6-14) Blood Urea Nitrogen 20 mg/dL (7-20) 16 mg/dL (7-20) Creatinine 0.9 mg/dL (0.6-1.0) 0.9 mg/dL (0.6-1.0) Estimated GFR (Cockcroft-Gault) 66.0 66.0 BUN/Creatinine Ratio 22 (6-20) 18 (6-20) Glucose Level 117 mg/dL (70-99) 111 mg/dL (70-99) Calcium Level 8.1 mg/dL (8.5-10.1) 8.3 mg/dL (8.5-10.1) Total Bilirubin 0.2 mg/dL (0.2-1.0) 0.3 mg/dL (0.2-1.0) Aspartate Amino Transf (AST/SGOT) 16 U/L (15-37) 25 U/L (15-37) Alanine Aminotransferase (ALT/SGPT) 25 U/L (14-59) 35 U/L (14-59) Alkaline Phosphatase 78 U/L (46-116) 91 U/L (46-116) Total Protein 6.6 g/dL (6.4-8.2) 6.9 g/dL (6.4-8.2) Albumin 3.3 g/dL (3.4-5.0) 3.5 g/dL (3.4-5.0) Albumin/Globulin Ratio 1.0 (1.0-1.7) 1.0 (1.0-1.7) Laboratory Tests Test 03/10/19 03:30 White Blood Count 9.0 x10^3/uL (4.0-11.0) Red Blood Count 4.32 x10^6/uL (3.50-5.40) Hemoglobin 12.1 g/dL (12.0-15.5) Hematocrit 36.8 % (36.0-47.0) Mean Corpuscular Volume 85 fL (79-100) Mean Corpuscular Hemoglobin 28 pg (25-35) Mean Corpuscular Hemoglobin Concent 33 g/dL (31-37) Red Cell Distribution Width 15.0 % (11.5-14.5) Platelet Count 276 x10^3/uL (140-400) Neutrophils (%) (Auto) 56 % (31-73) Lymphocytes (%) (Auto) 29 % (24-48) Monocytes (%) (Auto) 9 % (0-9) Eosinophils (%) (Auto) 7 % (0-3) Basophils (%) (Auto) 0 % (0-3) Neutrophils # (Auto) 5.0 x10^3/uL (1.8-7.7) Lymphocytes # (Auto) 2.6 x10^3/uL (1.0-4.8) Monocytes # (Auto) 0.8 x10^3/uL (0.0-1.1) Eosinophils # (Auto) 0.6 x10^3/uL (0.0-0.7) Basophils # (Auto) 0.0 x10^3/uL (0.0-0.2) Sodium Level 143 mmol/L (136-145) Potassium Level 3.8 mmol/L (3.5-5.1) Chloride Level 104 mmol/L (98-107) Carbon Dioxide Level 33 mmol/L (21-32) Anion Gap 6 (6-14) Blood Urea Nitrogen 16 mg/dL (7-20) Creatinine 0.9 mg/dL (0.6-1.0) Estimated GFR (Cockcroft-Gault) 66.0 BUN/Creatinine Ratio 18 (6-20) Glucose Level 111 mg/dL (70-99) Calcium Level 8.3 mg/dL (8.5-10.1) Total Bilirubin 0.3 mg/dL (0.2-1.0) Aspartate Amino Transf (AST/SGOT) 25 U/L (15-37) Alanine Aminotransferase (ALT/SGPT) 35 U/L (14-59) Alkaline Phosphatase 91 U/L (46-116) Total Protein 6.9 g/dL (6.4-8.2) Albumin 3.5 g/dL (3.4-5.0) Albumin/Globulin Ratio 1.0 (1.0-1.7) Allergies Allergies Coded Allergies Type Severity Reaction Last Updated Verified ceftriaxone Adverse Reaction Unknown Dry Cough 03/07/19 Yes Disposition/Orders: D/C to Home Patient Instructions D/C PLANNING 28 MIN KVNG ESTEVES MD Mar 10, 2019 14:46
[2019-03-10] MEDS ORDERED: ACET325T9 PO (14:50)
[2019-03-10] MEDS ORDERED: MAG30ORA2 PO (14:50)
[2019-03-10] MEDS ORDERED: SIME80TA14 PO (14:50)
[2019-03-10] MEDS ORDERED: ATOR20TA58 PO (14:50)
--- NOTE | 2019-03-10 14:52 | DISCH ---
DISCHARGE INSTRUCTIONS Condition on Discharge Condition on Discharge: Stable Activity After Discharge Activity Instructions for Disc: Activity as tolerated Lifting Instructions after Dis: No heavy lifting, No pulling or pushing Driving Instructions after Dis: Do not drive today Diet after Discharge Diet after Discharge: Cardiac Checks after Discharge Checks after discharge: Check blood press - daily Contacting the [facility] after DC Call your doctor for: If your condition worsens Warfarin Follow-Up Warfarin Follow UP: SEE PCP 2 WEEKS, KVNG GIRON MD Mar 10, 2019 14:52
[2019-03-10 15:00] VITALS: BP 97/54
--- NOTE | 2019-03-10 16:34 | NUR ---
patients iv removed and pressure held. tele monitor off. patient given prescription for Protonix and lipitor. discussed discharge and follow up instructions with patient. patient has no questions at time of discharge. patient stable at time of discharge. patient escorted to personal vehicle by this rn.
[2019-03-11] MEDS ORDERED: ALBU2.5V8 IH (22:24)
[2019-03-11] MEDS ORDERED: BENZ100C PO (22:24)
[2019-03-11] MEDS ORDERED: METH4TAB2 PO (22:24)
== END 2019-03-10 16:47 | disposition home or self-care (01) | DRG 287 ==
LOC: ER 21:30 → 2 NORTH 03-08 00:41 → ER 03-08 01:22 → OBSVTOIN 03-08 16:56
PROVIDERS: ADMIT Internal Medicine; ATTEND Internal Medicine
PROC: 4A023N7 Measurement of Cardiac Sampling and Pressure, Left Heart, Percutaneous Approach (ICD-10-PCS; principal; 2019-03-08)
PROC: B2111ZZ Fluoroscopy of Multiple Coronary Arteries using Low Osmolar Contrast (ICD-10-PCS; 2019-03-08)
DX: I20.0 Unstable angina (principal); I42.9 Cardiomyopathy, unspecified; I10 Essential (primary) hypertension; E11.9 Type 2 diabetes mellitus without complications; E66.9 Obesity, unspecified; E78.5 Hyperlipidemia, unspecified; J45.909 Unspecified asthma, uncomplicated; K21.9 Gastro-esophageal reflux disease without esophagitis; F41.9 Anxiety disorder, unspecified; Z82.49 Family history of ischemic heart disease and other diseases of the circulatory system; Z86.79 Personal history of other diseases of the circulatory system; Z87.442 Personal history of urinary calculi; Z90.710 Acquired absence of both cervix and uterus; Z68.35 Body mass index [BMI] 35.0-35.9, adult; Z88.8 Allergy status to other drugs, medicaments and biological substances; E06.3 Autoimmune thyroiditis
CPT/HCPCS: 36415; 71045; 71275; 76700; 80048; 80053; 80061; 82553; 83735; 84443; 84484; 85025; 85610; 93005; 93306; 93458; 96374; 99152; C1769; C1892; G0378; G0379; J1170; J1644; J2250; J2270; J2405; J3010; J3490; Q9967; 99285-25

== ENCOUNTER 2019-03-11 21:04 | Emergency (ER) | payer OTHER ==
[~2019-03-11] VITALS: Ht 177.8 cm; Wt 104.3 kg
[~2019-03-11 21:04] MED LIST: ACET325T9 PO; ASPI-630 PO; ATOR20TA58 PO; BUSP10TA PO; BUSP30TA PO; CETI10TA16 PO; FLUOXETINE; HYDR25TA10 PO; LEVO200T PO; LEVO50TA PO; MAG30ORA2 PO; MONT10TA49 PO; SIME80TA14 PO
--- NOTE | 2019-03-11 21:33 | PHYS DOC ---
Past Medical History Past Medical History: Hypothyroid, Other Additional Past Medical Histor: Cardiomyopathy, "something above or below my heart" Past Surgical History: Hysterectomy, Other Additional Past Surgical Histo: Bilateral carpal tunnel, ulnar nerve release Alcohol Use: Occasionally Drug Use: None Adult General Chief Complaint Chief Complaint: Congestion HPI HPI Patient is a 53-year-old female who presents with a several day history of cough and congestion. She denies any fever chills or sweats. She states she has had some associated shortness of breath. She states she feels like she got this while she was in the hospital recently as there was somebody sick ahead of her checking in. She denies any nausea or vomiting. She denies any hemoptysis.[] Review of Systems Review of Systems Constitutional: Denies fever or chills [] Eyes: Denies change in visual acuity, redness, or eye pain [] HENT: Denies nasal congestion or sore throat [] Respiratory: Per history of present illness[] Cardiovascular: No additional information not addressed in HPI [] GI: Denies abdominal pain, nausea, vomiting, bloody stools or diarrhea [] : Denies dysuria or hematuria [] Musculoskeletal: Denies back pain or joint pain [] Integument: Denies rash or skin lesions [] Neurologic: Denies headache, focal weakness or sensory changes [] Endocrine: Denies polyuria or polydipsia [] All other systems were reviewed and found to be within normal limits, except as documented in this note. Current Medications Current Medications Current Medications Medications (Trade) Dose Ordered Sig/María Start Time Stop Time Status Last Admin Dose Admin Albuterol/ Ipratropium (Duoneb) 6 ml 1X ONCE 03/11/19 21:45 03/11/19 21:46 DC 03/11/19 21:43 6 ML Methylprednisolone Sodium Succinate (SOLU-Medrol 125MG VIAL) 125 mg 1X ONCE 03/11/19 21:45 03/11/19 21:46 DC 03/11/19 21:35 125 MG Allergies Allergies Allergies Coded Allergies Type Severity Reaction Last Updated Verified ceftriaxone Adverse Reaction Unknown Dry Cough 03/07/19 Yes Physical Exam Physical Exam Constitutional: Well developed, well nourished, no acute distress, non-toxic appearance. [] HENT: Normocephalic, atraumatic, bilateral external ears normal, oropharynx moist, no oral exudates, nose normal. [] Eyes: PERRLA, EOMI, conjunctiva normal, no discharge. [] Neck: Normal range of motion, no tenderness, supple, no stridor. [] Cardiovascular:Heart rate regular rhythm, no murmur [] Lungs & Thorax: Scattered wheezes bilaterally no rales[] Abdomen: Bowel sounds normal, soft, no tenderness, no masses, no pulsatile masses. [] Skin: Warm, dry, no erythema, no rash. [] Back: No tenderness, no CVA tenderness. [] Extremities: No tenderness, no cyanosis, no clubbing, ROM intact, no edema. [] Neurologic: Alert and oriented X 3, normal motor function, normal sensory function, no focal deficits noted. [] Psychologic: Anxious. [] Current Patient Data Vital Signs Vital Signs Date Time Temp Pulse Resp B/P (MAP) Pulse Ox O2 Delivery O2 Flow Rate FiO2 03/11/19 21:43 97 Room Air 03/11/19 21:42 75 103/58 (73) 03/11/19 21:15 98.4 19 98.4 Lab Values Laboratory Tests Test 03/11/19 21:20 White Blood Count 8.5 x10^3/uL (4.0-11.0) Red Blood Count 4.70 x10^6/uL (3.50-5.40) Hemoglobin 13.1 g/dL (12.0-15.5) Hematocrit 40.1 % (36.0-47.0) Mean Corpuscular Volume 85 fL (79-100) Mean Corpuscular Hemoglobin 28 pg (25-35) Mean Corpuscular Hemoglobin Concent 33 g/dL (31-37) Red Cell Distribution Width 15.3 % (11.5-14.5) H Platelet Count 302 x10^3/uL (140-400) Neutrophils (%) (Auto) 55 % (31-73) Lymphocytes (%) (Auto) 30 % (24-48) Monocytes (%) (Auto) 9 % (0-9) Eosinophils (%) (Auto) 5 % (0-3) H Basophils (%) (Auto) 1 % (0-3) Neutrophils # (Auto) 4.7 x10^3/uL (1.8-7.7) Lymphocytes # (Auto) 2.6 x10^3/uL (1.0-4.8) Monocytes # (Auto) 0.7 x10^3/uL (0.0-1.1) Eosinophils # (Auto) 0.5 x10^3/uL (0.0-0.7) Basophils # (Auto) 0.0 x10^3/uL (0.0-0.2) Sodium Level 145 mmol/L (136-145) Potassium Level 4.3 mmol/L (3.5-5.1) Chloride Level 107 mmol/L (98-107) Carbon Dioxide Level 29 mmol/L (21-32) Anion Gap 9 (6-14) Blood Urea Nitrogen 19 mg/dL (7-20) Creatinine 0.7 mg/dL (0.6-1.0) Estimated GFR (Cockcroft-Gault) 88.2 BUN/Creatinine Ratio 27 (6-20) H Glucose Level 134 mg/dL (70-99) H Lactic Acid Level 1.5 mmol/L (0.4-2.0) Calcium Level 9.1 mg/dL (8.5-10.1) Total Bilirubin 0.2 mg/dL (0.2-1.0) Aspartate Amino Transferase (AST) 56 U/L (15-37) H Alanine Aminotransferase (ALT) 79 U/L (14-59) H Alkaline Phosphatase 137 U/L (46-116) H Total Protein 7.2 g/dL (6.4-8.2) Albumin 3.7 g/dL (3.4-5.0) Albumin/Globulin Ratio 1.1 (1.0-1.7) Laboratory Tests 03/11/19 21:20 Laboratory Tests 03/11/19 21:20 EKG EKG [] Radiology/Procedures Radiology/Procedures [] Impressions: PROCEDURE: CHEST AP ONLY CHEST AP ONLY Clinical Indication: Cough Comparison: AP chest, March 07, 2019. Findings: The cardiomediastinal silhouette is normal. Linear opacity near the right lung base may be discoid atelectasis or scarring. Lungs are otherwise clear. There is no pneumothorax. No pleural effusion is appreciated. No acute bone abnormality. IMPRESSION: No acute cardiopulmonary process. Course & Med Decision Making Course & Med Decision Making Pertinent Labs and Imaging studies reviewed. (See chart for details) [ED course: Evaluation reveals a 63-year-old female with bronchitis. She was given 2 DuoNeb's 125 Solu-Medrol with complete resolution of her wheezes. She did continue to cough. I've explained to her that antibiotics are not indicated at this time. Her chest x-ray was negative. We will start her on a cough medicine, albuterol metered-dose inhaler and steroids as an outpatient.] Dragon Disclaimer Dragon Disclaimer This electronic medical record was generated, in whole or in part, using a voice recognition dictation system. Departure Departure Impression: Primary Impression: Bronchitis Disposition: HOME, SELF-CARE Condition: IMPROVED Referrals: NO PCP (PCP) Patient Instructions: Acute Bronchitis Additional Instructions: Take medication as directed. Return to the emergency department with any new or concerning symptoms Scripts Benzonatate (TESSALON PERLE) 100 Mg Capsule 1 CAP PO TID for cough, #30 CAP Prov: NURY REYES DO 03/11/19 Methylprednisolone (MEDROL) 4 Mg Tab.ds.pk 1 PKG PO UD for arthritis, #1 PKG Prov: NURY REYES DO 03/11/19 Albuterol Sulfate (PROVENTIL HFA INHALER) 6.7 Gm Hfa.aer.ad 2 PUFF IH PRN Q4HRS PRN for bronchitis, #1 INHALER 2 Refills Prov: NURY REYES DO 03/11/19 NURY REYES DO Mar 11, 2019 21:33
[2019-03-11 21:44] LABS: BASO % 1 % (0-3); EOS # 0.5 x10^3/uL (0.0-0.7); EOS % 5 % (0-3); HEMATOCRIT 40.1 % (36.0-47.0); HEMOGLOBIN 13.1 g/dL (12.0-15.5); LYMPH # 2.6 x10^3/uL (1.0-4.8); LYMPH % 30 % (24-48); MEAN CORPUSCULAR HEMOGLOBIN 28 pg (25-35); MEAN CORPUSCULAR HGB CONC 33 g/dL (31-37); MEAN CORPUSCULAR VOLUME 85 fL (79-100); MONO # 0.7 x10^3/uL (0.0-1.1); MONO % 9 % (0-9); NEUT # 4.7 x10^3/uL (1.8-7.7); NEUT % 55 % (31-73); PLATELET COUNT 302 x10^3/uL (140-400); RED CELL DISTRIBUTION WIDTH 15.3 % (11.5-14.5); WHITE BLOOD COUNT 8.5 x10^3/uL (4.0-11.0)
[2019-03-11] MEDS ORDERED: methylPREDNISolone SOD SUCC PF 125 MG/2 ML VIAL. IV ONE (21:45)
[2019-03-11] MEDS ORDERED: IPRATRPIUM/ALBUTEROL 0.5/2.5MG 3 ML NEBU. NEB ONE (21:45)
[2019-03-11 21:54] LABS: CALCIUM 9.1 mg/dL (8.5-10.1); CREATININE 0.7 mg/dL (0.6-1.0); GFR 88.2; POTASSIUM 4.3 mmol/L (3.5-5.1)
[2019-03-11 21:59] LABS: ALBUMIN 3.7 g/dL (3.4-5.0); ALBUMIN/GLOBULIN RATIO 1.1 (1.0-1.7); TOTAL BILIRUBIN 0.2 mg/dL (0.2-1.0); TOTAL PROTEIN 7.2 g/dL (6.4-8.2)
--- NOTE | 2019-03-11 22:05 | RAD ---
CHEST AP ONLY Clinical Indication: Cough Comparison: AP chest, March 07, 2019. Findings: The cardiomediastinal silhouette is normal. Linear opacity near the right lung base may be discoid atelectasis or scarring. Lungs are otherwise clear. There is no pneumothorax. No pleural effusion is appreciated. No acute bone abnormality. IMPRESSION: No acute cardiopulmonary process. Electronically signed by: Silas Sales MD (03/11/2019 10:02 PM) [facility]
[2019-03-11 22:12] VITALS: BP 119/66
[2019-03-11] MEDS ORDERED: METH4TAB2 PO (22:24)
[2019-03-11] MEDS ORDERED: BENZ100C PO (22:24)
[2019-03-11] MEDS ORDERED: ALBU2.5V8 IH (22:24)
== END 2019-03-11 22:40 | disposition home or self-care (01) ==
LOC: ER 21:04
DX: J40 Bronchitis, not specified as acute or chronic (principal); E03.9 Hypothyroidism, unspecified; Z90.710 Acquired absence of both cervix and uterus; Z88.1 Allergy status to other antibiotic agents
CPT/HCPCS: 36415; 71045; 80053; 83605; 85025; 87040; 94640; 96374; 99285; J2930; J7620

== ENCOUNTER 2019-03-15 11:34 | Emergency (ER) | payer OTHER ==
[~2019-03-15] VITALS: Ht 177.8 cm; Wt 104.3 kg
[~2019-03-15 11:34] MED LIST changes: +ALBU2.5V8 IH; +BENZ100C PO; +METH4TAB2 PO
[2019-03-15 12:00] VITALS: BP 126/81
[2019-03-15] MEDS ORDERED: IPRATRPIUM/ALBUTEROL 0.5/2.5MG 3 ML NEBU. NEB ONE (12:45)
[2019-03-15] MEDS ORDERED: DEXAMETHASONE 4 MG TABLET PO STA (13:02)
--- NOTE | 2019-03-15 13:20 | PHYS DOC ---
Past Medical History Past Medical History: Hypothyroid, Other Additional Past Medical Histor: Cardiomyopathy, "something above or below my heart" Past Surgical History: Hysterectomy, Other Additional Past Surgical Histo: Bilateral carpal tunnel, ulnar nerve release Alcohol Use: Occasionally Drug Use: None Adult General Chief Complaint Chief Complaint: COUGH HPI HPI Patient is a 53 year old female that presents with cough, runny nose, congestion, shortness of breath, wheezing. Has been ongoing for last week. Her pain as 6 out of 10 in severity. Describes the pain is from coughing. Denies fever. Review of Systems Review of Systems Constitutional: Denies fever or chills [] Eyes: Denies change in visual acuity, redness, or eye pain [] HENT: Reports nasal congestion. Respiratory: Reports cough and shortness of breath [] Cardiovascular: No additional information not addressed in HPI [] GI: Denies abdominal pain, nausea, vomiting, bloody stools or diarrhea [] : Denies dysuria or hematuria [] Musculoskeletal: Denies back pain or joint pain [] Integument: Denies rash or skin lesions [] Neurologic: Denies headache, focal weakness or sensory changes [] Endocrine: Denies polyuria or polydipsia [] Complete systems were reviewed and found to be within normal limits, except as documented in this note. Current Medications Current Medications Current Medications Medications (Trade) Dose Ordered Sig/María Start Time Stop Time Status Last Admin Dose Admin Albuterol/ Ipratropium (Duoneb) 3 ml 1X ONCE 03/15/19 12:45 03/15/19 12:46 DC 03/15/19 13:15 3 ML Dexamethasone (Decadron) 10 mg 1X STAT 03/15/19 13:02 03/15/19 13:05 DC 03/15/19 13:28 10 MG Allergies Allergies Allergies Coded Allergies Type Severity Reaction Last Updated Verified ceftriaxone Adverse Reaction Unknown Dry Cough 03/07/19 Yes Physical Exam Physical Exam Constitutional: Well developed, well nourished, no acute distress, non-toxic appearance. [] HENT: Normocephalic, atraumatic, bilateral external ears normal, oropharynx moist, no oral exudates, nose normal. [] Eyes: PERRLA, EOMI, conjunctiva normal, no discharge. [] Neck: Normal range of motion, no tenderness, supple, no stridor. [] Cardiovascular:Heart rate regular rhythm, no murmur [] Lungs & Thorax: Bilateral breath sounds clear to auscultation [] Abdomen: Bowel sounds normal, soft, no tenderness, no masses, no pulsatile masses. [] Skin: Warm, dry, no erythema, no rash. [] Back: No tenderness, no CVA tenderness. [] Extremities: No tenderness, no cyanosis, no clubbing, ROM intact, no edema. [] Neurologic: Alert and oriented X 3, normal motor function, normal sensory function, no focal deficits noted. [] Psychologic: Affect normal, judgement normal, mood normal. [] Current Patient Data Vital Signs Vital Signs Date Time Temp Pulse Resp B/P (MAP) Pulse Ox O2 Delivery O2 Flow Rate FiO2 03/15/19 13:15 95 Room Air 03/15/19 12:00 98.8 95 20 126/81 (96) 98.8 EKG EKG [] Radiology/Procedures Radiology/Procedures [][facility] [address] [place] [address] IMAGING REPORT Signed PATIENT: CAMERON RADFORD ACCOUNT: [id number] : 1965 LOCATION: ER AGE: 53 SEX: F EXAM STATUS: REG ER ORD. PHYSICIAN: TRENTON HARRINGTON APRN REASON: cough, shortness of breath PROCEDURE: CHEST PA & LATERAL CHEST PA LATERAL History: Cough, shortness of breath Comparison: March 21, 2019 Findings: 2 views of the chest are submitted. There is again mild elevation of the right hemidiaphragm. There is no dependent pleural fluid, pneumothorax, lobar infiltrate. Cardiac silhouette is stable. Impression: 1. No acute radiographic abnormality is identified. Electronically signed by: Laurie Aguila MD (03/15/2019 1:35 PM) [id number] DICTATED and SIGNED BY: LAURIE AGUILA MD DATE: 03/15/19 8041 Course & Med Decision Making Course & Med Decision Making Pertinent Labs and Imaging studies reviewed. (See chart for details) Will give breathing treatment, steroids, and get chest x-ray. Imaging is negative. Recommended to patient to continue to drink plenty of water, continue to take Zyrtec, and Mucinex. Dragon Disclaimer Dragon Disclaimer This electronic medical record was generated, in whole or in part, using a voice recognition dictation system. Departure Departure Impression: Primary Impression: Bronchitis Disposition: 01 HOME, SELF-CARE Condition: STABLE Referrals: NO PCP (PCP) Patient Instructions: Acute Bronchitis Additional Instructions: Thank you for visiting [facility]. We appreciate you trusting us with your care. If any additional problems come up don't hesitate to return to visit us. Please follow up with your primary care provider so they can plan additional care if needed and know about the problem that you had. If symptoms worsen come back to the Emergency Department. Any concerning symptoms that start such as chest pain, shortness of air, weakness or numbness on one side of the body, running high fevers or any other concerning symptoms return to the ER. Please fill your medications at any pharmacy and follow the prescription in structions. Scripts Benzonatate (TESSALON PERLE) 100 Mg Capsule 1 CAP PO TID PRN for COUGH, #21 CAP Prov: TRENTON HARRINGTON APRN 03/15/19 TRENTON HARRINGTON APRN Mar 15, 2019 13:20
--- NOTE | 2019-03-15 13:37 | RAD ---
CHEST PA LATERAL History: Cough, shortness of breath Comparison: March 21, 2019 Findings: 2 views of the chest are submitted. There is again mild elevation of the right hemidiaphragm. There is no dependent pleural fluid, pneumothorax, lobar infiltrate. Cardiac silhouette is stable. Impression: 1. No acute radiographic abnormality is identified. Electronically signed by: Hossein Bender MD (03/15/2019 1:35 PM) [id number]
[2019-03-15] MEDS ORDERED: BENZ100C PO (13:48)
== END 2019-03-15 14:04 | disposition home or self-care (01) ==
LOC: ER 11:34
DX: J40 Bronchitis, not specified as acute or chronic (principal); E03.9 Hypothyroidism, unspecified; Z88.1 Allergy status to other antibiotic agents
CPT/HCPCS: 71046; 94640; 99284; J7620; J8540